=== PATIENT | male | born 1965 | race Caucasian/White ===

== ENCOUNTER 2016-06-03 19:00 | Inpatient (IN) | payer OTHER ==
[~2016-06-03] VITALS: Ht 175.3 cm; Wt 93.0 kg
[~2016-06-03 19:00] MED LIST: METF500T PO
[2016-06-03 19:23] VITALS: BP 120/73
[2016-06-03] MEDS ORDERED: SITA25TA3 PO (19:28)
[2016-06-03] MEDS ORDERED: LISI5TAB18 PO (19:28)
--- NOTE | 2016-06-03 23:10 | NUR ---
PT TAKEN TO BED 7
--- NOTE | 2016-06-03 23:11 | NUR ---
50 Y/O M W/C/O L EAR PAIN X 7 DAYS. PT STATES HE NOTED PAIN BECAME WORSE AND BLOODY DISCHRAGE PRESENT FROM AFFECETD EAR X 3 DAYS AGO. DENIES ANY N/V OR FEVER. ER AWARE.
--- NOTE | 2016-06-03 23:21 | NUR ---
Dr. Aiken evaluating patient at bedside.
[2016-06-03] MEDS ORDERED: KETOROLAC 30 MG/ML VIAL IM ONE (23:35)
[2016-06-03] MEDS ORDERED: HYDROcodone/APAP 5/325 MG 1 TAB TAB PO ONE (23:35)
--- NOTE | 2016-06-03 23:47 | NUR ---
PT MOVED TO OF
--- NOTE | 2016-06-04 00:11 | NUR ---
PT RETURN FROM CT TO OF
[2016-06-04] MEDS ORDERED: NACL 0.9% 1,000 ML IV ONE (00:38)
[2016-06-04] MEDS ORDERED: VANCOMYCIN 1,000 MG in DEXTROSE 5% 250 ML IV ONE (00:40)
--- NOTE | 2016-06-04 00:42 | NUR ---
PT MOVED TO BED 7
[2016-06-04] MEDS ORDERED: MORPHINE SULFATE 4 MG/ML SYR IVP ONE (00:50)
[2016-06-04] MEDS ORDERED: cefTRIAXone 1,000 MG VIAL ONE (01:03)
[2016-06-04] MEDS ORDERED: VANCOMYCIN 1,000 MG VIAL ONE (01:03)
[2016-06-04 01:14] LABS: BASOPHILS # (AUTO) 0.4 K/uL (0.00-0.22); BASOPHILS % (AUTO) 3.9 % (0.0-2.0); EOSINOPHILS % (AUTO) 8.9 % (0.0-4.0); HEMATOCRIT 36.2 % (36-52); LYMPHOCYTES # (AUTO) 2.6 K/uL (2.0-11.5); LYMPHOCYTES % (AUTO) 22.2 % (20.5-51.1); MEAN CORPUSCULAR HEMOGLOBIN 28 pg (27-31); MEAN CORPUSCULAR HGB CONC 33 g/dL (33-37); MEAN CORPUSCULAR VOLUME 86 fL (80-94); MONOCYTES # (AUTO) 1.1 K/uL (0.8-1.0); MONOCYTES % (AUTO) 9.3 % (1.7-9.3); NEUTROPHILS # (AUTO) 6.4 K/uL (1.8-7.7); NEUTROPHILS % (AUTO) 55.7 % (42.2-75.2); PLATELET COUNT (AUTO) 594 K/uL (140-450); RED BLOOD CELL COUNT(AUTO) 4.22 MIL/uL (4.20-6.10); RED CELL DISTRIBUTION WIDTH 12.3 % (11.6-13.7); WHITE BLOOD COUNT (AUTO) 11.5 K/uL (4.8-10.8)
[2016-06-04 01:18] LABS: INR 1.1 (0.8-1.2); PROTHROMBIN TIME 10.2 secs (10.8-13.4)
[2016-06-04 01:20] LABS: ALBUMIN 3.2 g/dL (3.4-5.0); ANION GAP 13.9 (8-16); CALCIUM 8.1 mg/dL (8.5-10.1); CARBON DIOXIDE 24.9 mmol/L (21-32); CREATININE 1.4 mg/dL (0.6-1.3); POTASSIUM 4.8 mmol/L (3.5-5.1); TOTAL BILIRUBIN 0.3 mg/dL (0.0-1.0); TOTAL PROTEIN, SERUM 7.8 g/dL (6.4-8.2)
--- NOTE | 2016-06-04 01:40 | NUR ---
Patient will be admitted to care of DR RHODES. Admited to MED SURG. Will go to [id number]. Belongings list completed. Report to RADHA WINCHESTER.
[2016-06-04 01:50] VITALS: BP 161/82
--- NOTE | 2016-06-04 01:52 | NUR ---
PT TRASFERRED TO MED SURG ROOM 107 B, BY BERT MCCARTNEY, VIA WHEEL CHAIR. NO S/S OF DISTRESS NOTED UPON D/C.
--- NOTE | 2016-06-04 02:45 | NUR ---
ADMITTED PATIENT TO UNIT FROM ED. PATIENT ARRIVED VIA WHEELCHAIR, PATIENT ABLE TO AMBULATE TO BED, STEADY GAIT NOTED. PATIENT IS ON ROOM AIR, NO SOB OR SIGN OF DISTRESS AT THIS TIME. SKIN INTACT WITH SCAB NOTED TO RIGHT ANKLE. IV TO LAC PATENT AND INTACT, PATIENT C/O PAIN TO LEFT EAR, WAS MEDICATED IN THE ED, WILL CONTINUE TO MONITOR. ORIENTED PATIENT TO ROOM AND CALL LIGHT, DISCUSSED PLAN OF CARE WITH PATIENT, PATIENT VERBALIZED UNDERSTANDING. SAFETY MEASURES CHECKED, CALL LIGHT WITHIN REACH. WILL CONTINUE TO MONITOR.
[2016-06-04] MEDS ORDERED: PNEUMOCOCCAL VACCINE 23 MCG/0.5 ML VIAL IMVAC PRN (03:05)
[2016-06-04] MEDS ORDERED: INFLUENZA VIRUS VACCINE QUAD 0.5 ML SYR IMVAC PRN (03:05)
[2016-06-04] MEDS ORDERED: HYDROmorphone 1 MG/ML AMP IVP SCH (03:05)
--- NOTE | 2016-06-04 03:05 | NUR ---
PATIENT C/O SEVERE PAIN IN THE LEFT EAR, PAGED MD RHODES. WILL FOLLOW UP WITH ORDERS.
--- NOTE | 2016-06-04 03:15 | NUR ---
ADMINISTERED DIALUDED PER MD ORDER FOR SEVERE PAIN, WILL CONTINUE TO MONITOR PATIENT. CALL LIGHT WITHIN REACH. WILL CONTINUE TO MONITOR.
[2016-06-04] MEDS ORDERED: NACL 0.9% 1,000 ML IV SCH (03:26)
[2016-06-04] MEDS ORDERED: ACETAMINOPHEN 325 MG TAB PO PRN (03:30)
[2016-06-04] MEDS ORDERED: ONDANSETRON 4 MG/2 ML VIAL IVP PRN (03:30)
[2016-06-04 04:00] VITALS: BP 150/72
[2016-06-04] MEDS ORDERED: PIPERACILLIN/TAZOBACTAM 3.375 GM VIAL IV ONE (04:26)
--- NOTE | 2016-06-04 04:30 | NUR ---
PATIENT SLEEPING, NO SOB OR SIGN OF DISTRESS AT THIS TIME, CALL LIGHT WITHIN REACH. WILL CONTINUE TO MONITOR
[2016-06-04] MEDS ORDERED: PIPERACILLIN/TAZOBACTAM 3.375 GM in DEXTROSE 5% 50 ML IV SCH (05:00)
--- NOTE | 2016-06-04 06:00 | NUR ---
BS CHECK 144, NO COVERAGE NEEDED
[2016-06-04] MEDS: BLOOD GLUCOSE MONITORING 1 DEV DEV FS SCH ×4 (06:33→20:22)
--- NOTE | 2016-06-04 07:21 | NUR ---
ENDORSED PATIENT TO DAY RN AT BEDSIDE, PATIENT IN STABLE CONDITION
--- NOTE | 2016-06-04 07:25 | NUR ---
RECEIVED REPORT FROM RADHA WINCHESTER. PT IS IN BED SLEEPING BUT EASILY AWAKEN, A/OX4, IV IS ON LEFT AC PATENT, INITIAL ASSESSMENT DONE, INTACT INFUSING WELL, SKIN IS INTACT, NO S/S OF RESPIRATORY DISTRESS OR DISCOMFORT NOTED. DISCUSSED PLAN OF CARE WITH PT, PT VERBALIZED UNDERSTANDING. ORIENTED PT TO THE ROOM. SAFETY/ FALL PRECAUTIONS IN PLACE. CALL LIGHT WITHIN REACH, WILL CONTINUE TO MONITOR.
--- NOTE | 2016-06-04 07:52 | NUR ---
PATIENT HAS BEEN SCREENED AND CATEGORIZED MODERATE NUTRITION RISK. PATIENT WILL BE SEEN WITHIN 3-5 DAYS OF ADMISSION. 06/06/16-06/08/[address]
[2016-06-04 08:00] VITALS: BP 139/89
[2016-06-04] MEDS: MORPHINE SULFATE 2 MG/ML SYR IVP PRN ×2 (08:08→18:27)
--- NOTE | 2016-06-04 08:08 | NUR ---
DUE MEDICATIONS GIVEN. PT TOLERATED WELL. PT RESTING IN BED TALKING ON HIS CELL PHONE.
[2016-06-04] MEDS ORDERED: NACL 0.9% 500 ML IV SCH (08:10)
[2016-06-04] MEDS: ENOXAPARIN 40 MG/0.4 ML SYR SUBQ SCH (08:17)
[2016-06-04] MEDS ORDERED: hydrALAZINE 20 MG/ML VIAL IVP PRN (08:30)
[2016-06-04] MEDS: NACL 0.45% 1,000 ML IV SCH (08:30)
[2016-06-04] MEDS: LEVOFLOXACIN 500 MG/D5W PREMIX 100 ML IV SCH (08:54)
[2016-06-04] MEDS ORDERED: LOPERAMIDE 2 MG CAP PO PRN (09:00)
[2016-06-04] MEDS: amLODIPine 5 MG TAB PO SCH (09:20)
[2016-06-04] MEDS: HYDROcodone/APAP 5/325 MG 1 TAB TAB PO PRN ×3 (09:20→20:21)
[2016-06-04] MEDS: CIPROFLOXACIN 0.3% OP 2.5 ML BTL OP SCH ×2 (09:24→20:21)
--- NOTE | 2016-06-04 10:30 | NUR ---
PT IS SLEEPING IN BED. NO S/S OF DISCOMFORT OR RESPIRATORY DISTRESS NOTED.
--- NOTE | 2016-06-04 12:01 | NUR ---
PT SITTING IN BED TALKING ON HIS CELL PHONE, FAMILY IS AT BEDSIDE.
[2016-06-04] MEDS: PIPER/TAZO 3.375GM/D5W PREMIX 50 ML IV SCH ×2 (13:08→20:21)
--- NOTE | 2016-06-04 14:06 | NUR ---
PT SLEEPING AT THIS TIME. NO S/S OF RESPIRATORY DISTRESS OR DISCOMFORT NOTED. WILL CONTINUE TO MONITOR.
--- NOTE | 2016-06-04 14:52 | NUR ---
CM NOTE INITIAL REVIEW SENT TO [facility] FAX# [phone] PH# AUGUST [phone]
[2016-06-04 16:00] VITALS: BP 139/67
--- NOTE | 2016-06-04 16:30 | NUR ---
PT RESTING IN BED WATCHING TV. NO S/S OF RESPIRATORY DISTRESS OR DISCOMFORT NOTED. CALL LIGHT WITHIN REACH, WILL CONTINUE TO MONITOR.
[2016-06-04] MEDS: INSULIN LISPRO SLIDING SCALE 100 UNITS/ML VIAL SUBQ PRN ×2 (18:03→20:30)
--- NOTE | 2016-06-04 19:16 | NUR ---
ENDORSED PT TO RADHA FULLER. FOR CONTINUITY OF CARE. PT STABLE AT THIS TIME. FAMILY AT BEDSIDE.
--- NOTE | 2016-06-04 19:17 | NUR ---
RECEIVED PT IN STABLE CONDITION FROM RADHA FAM. NO SOB, NO SIGNS OF DISTRESS. IV TO LT AC 22G PATENT, ASYMPTOMATIC, INTACT, IVF RUNNING. PT IS AOX4, AMBULATORY. SKIN IS INTACT. PT C/O MINIMAL BLEEDING FROM LT EAR WITH PAIN, WILL MEDICATE PER MD ORDER. FAMILY AT BEDSIDE. PLAN OF CARE DISCUSSED WITH PT. SAFETY MEASURES IN PLACE. CALL LIGHT WITHIN REACH. WILL CONTINUE TO MONITOR.
--- NOTE | 2016-06-04 20:30 | NUR ---
PT TOLERATED DUE MEDS WELL, MEDICATED PT FOR PAIN PER MD ORDER. BLOOD SUGAR 208, GAVE INSULIN PER MD ORDER. NO SOB, NO SIGNS OF DISTRESS. IV SITE ASYMPTOMATIC, INTACT, PATENT, IVF RUNNING. PLAN OF CARE DISCUSSED WITH PT. SAFETY MEASURES IN PLACE. CALL LIGHT WITHIN REACH. WILL CONTINUE TO MONITOR.
--- NOTE | 2016-06-04 22:29 | NUR ---
PT ASLEEP IN BED. NO SOB, NO SIGNS OF DISTRESS. IV SITE ASYMPTOMATIC, INTACT, PATENT, IVF RUNNING. SAFETY MEASURES IN PLACE. CALL LIGHT WITHIN REACH. WILL CONTINUE TO MONITOR.
--- NOTE | 2016-06-04 23:25 | NUR ---
PER GRADING MACHINE FEEDER ZOSYN 4.5GM IS NOT AVAILABLE IN [facility], ONLY IN PHARMACY AND CANNOT BE GIVEN UNIT PHARMACY IS OPEN IN AM. WILL PAGE TO MAKE AWARE.
--- NOTE | 2016-06-04 23:29 | NUR ---
VS STABLE ON ROOM AIR. NO SOB, NO SIGNS OF DISTRESS. IV SITE ASYMPTOMATIC, INTACT, PATENT, IVF RUNNING. PT DENIES PAIN AT THIS TIME. PLAN OF CARE DISCUSSED WITH PT. SAFETY MEASURES IN PLACE. CALL LIGHT WITHIN REACH. WILL CONTINUE TO MONITOR.
--- NOTE | 2016-06-04 23:30 | NUR ---
PAGED MD SHAH TO MAKE AWARE THAT ZOSYN 4.5GM DOSE IS NOT AVAILABLE AT THIS TIME.
--- NOTE | 2016-06-04 23:33 | NUR ---
SPOKE WITH MD ALYSSA MD MADE AWARE THAT ZOSYN 4.5 GM DOSE WILL NOT BE AVAILABLE UNTIL PHARMACY IS OPEN TOMORROW, STATED OK TO HOLD MED UNTIL IT IS AVAILABLE.
[2016-06-04] MEDS: PIPERACILLIN/TAZOBACTAM 4.5 GM in DEXTROSE 5% 100 ML IV SCH (23:47)
[2016-06-05] VITALS: BP 151/89
[2016-06-05] MEDS: HYDROcodone/APAP 5/325 MG 1 TAB TAB PO PRN ×4 (00:49→23:05)
--- NOTE | 2016-06-05 00:49 | NUR ---
PT C/O PAIN IN LT EAR WITH MINIMAL BLEEDING NOTED, MEDICATED PT PER MD ORDER. TOLD PT TO SLEEP ON HIS RIGHT SIDE RATHER THAN PUTTING PRESSURE ON HIS LT EAR, PT VERBALIZED UNDERSTANDING. NO SOB, NO SIGNS OF DISTRESS. IV SITE ASYMPTOMATIC, INTACT, PATENT, IVF RUNNING. PLAN OF CARE DISCUSSED WITH PT. SAFETY MEASURES IN PLACE. CALL LIGHT WITHIN REACH. WILL CONTINUE TO MONITOR.
--- NOTE | 2016-06-05 04:15 | NUR ---
PT C/O IV SITE PAINFUL, IV ALARMING WITH HIGH PRESSURE, UNABLE TO FLUSH LINE. DC IV TO LT AC AND STARTED NEW IV TO LT FA 22G PATENT, ASYMPTOMATIC, INTACT, IVF RUNNING. PT C/O PAIN AND REQUESTED NORCO, WILL MEDICATE PER MD ORDER. PLAN OF CARE DISCUSSED WITH PT. SAFETY MEASURES IN PLACE. CALL LIGHT WITHIN REACH. WILL CONTINUE TO MONITOR.
[2016-06-05] MEDS: PIPERACILLIN/TAZOBACTAM 4.5 GM in DEXTROSE 5% 100 ML IV SCH ×3 (05:34→18:10)
[2016-06-05] MEDS ORDERED: HYDROcodone/APAP 5/325 MG 1 TAB TAB ONE (05:38)
[2016-06-05 06:07] LABS: BASOPHILS # (AUTO) 0.4 K/uL (0.00-0.22); BASOPHILS % (AUTO) 4.1 % (0.0-2.0); EOSINOPHILS # (AUTO) 1.3 K/uL (0-0.4); HEMATOCRIT 36.4 % (36-52); HEMOGLOBIN 12.3 g/dL (12.0-18.0); LYMPHOCYTES # (AUTO) 3.3 K/uL (2.0-11.5); LYMPHOCYTES % (AUTO) 31.9 % (20.5-51.1); MEAN CORPUSCULAR HEMOGLOBIN 29 pg (27-31); MEAN CORPUSCULAR HGB CONC 34 g/dL (33-37); MEAN CORPUSCULAR VOLUME 85 fL (80-94); MONOCYTES % (AUTO) 9.4 % (1.7-9.3); NEUTROPHILS # (AUTO) 4.2 K/uL (1.8-7.7); NEUTROPHILS % (AUTO) 41.6 % (42.2-75.2); PLATELET COUNT (AUTO) 509 K/uL (140-450); RED BLOOD CELL COUNT(AUTO) 4.28 MIL/uL (4.20-6.10); RED CELL DISTRIBUTION WIDTH 11.9 % (11.6-13.7); WHITE BLOOD COUNT (AUTO) 10.2 K/uL (4.8-10.8)
[2016-06-05] MEDS: BLOOD GLUCOSE MONITORING 1 DEV DEV FS SCH ×4 (06:11→20:36)
[2016-06-05 06:21] LABS: ANION GAP 12.6 (8-16); CALCIUM 7.9 mg/dL (8.5-10.1); CARBON DIOXIDE 24.5 mmol/L (21-32); POTASSIUM 5.1 mmol/L (3.5-5.1)
--- NOTE | 2016-06-05 07:26 | NUR ---
ENDORSED PT IN STABLE CONDITION TO RADHA WILKERSON. ALL NEEDS HAVE BEEN MET AT THIS TIME.
--- NOTE | 2016-06-05 07:27 | NUR ---
RECEIVED SBAR REPORT AT PT BEDSIDE. PT RESTING IN BED. NO S/S OF ACUTE DISTRESS. AAOX4. IV SITE PATENT AND INTACT. CALL LIGHT WITHIN REACH.
[2016-06-05 08:00] VITALS: BP 108/70
[2016-06-05] MEDS: NACL 0.45% 1,000 ML IV SCH (08:30)
[2016-06-05] MEDS: LEVOFLOXACIN 500 MG/D5W PREMIX 100 ML IV SCH (09:01)
[2016-06-05] MEDS: CIPROFLOXACIN 0.3% OP 2.5 ML BTL OP SCH ×2 (09:01→20:45)
[2016-06-05] MEDS: ENOXAPARIN 40 MG/0.4 ML SYR SUBQ SCH (09:07)
[2016-06-05] MEDS: amLODIPine 5 MG TAB PO SCH (10:15)
--- NOTE | 2016-06-05 10:53 | NUR ---
CM NOTE CONCURRENT REVIEW SENT TO [facility] FAX# [phone] PH# AUGUST [phone]
--- NOTE | 2016-06-05 11:14 | NUR ---
ASSISTED PT TO SHOWER. NO S/S OF ACUTE DISTRESS.
--- NOTE | 2016-06-05 11:51 | NUR ---
PT RETURNED TO BED, NO S/S OF ACUTE DISTRESS. DENIES DISCOMFORT.
[2016-06-05] MEDS: INSULIN LISPRO SLIDING SCALE 100 UNITS/ML VIAL SUBQ PRN ×2 (12:03→21:37)
--- NOTE | 2016-06-05 14:00 | NUR ---
PT RESTING IN BED. DENIES DISCOMFORT. IV SITE PATENT AND INTACT. CALL LIGHT WITHIN REACH.
[2016-06-05 16:00] VITALS: BP 146/84
--- NOTE | 2016-06-05 17:20 | NUR ---
PT RESTING IN BED. DENIES DISCOMFORT. WILL CONTINUE TO MONITOR.
--- NOTE | 2016-06-05 19:15 | NUR ---
ENDORSED PLAN OF CARE TO RN JEROD. PT RESTING IN BED. FAMILY AT BEDSIDE. NO S/S OF ACUTE DISTRESS.
--- NOTE | 2016-06-05 19:20 | NUR ---
RECEIVED PT IN STABLE CONDITION FROM AM NURSE. AWAKE,ALERT AND ORIENTED X4. MED SURG PT. NO C/O ANY DISCOMFORT NOR PAIN AT THIS TIME. AMBULATORY. WITH IVF INFUSING WELL ON THE LT FA#22 ,CLEAR AND PATENT. PLAN OF CARE DISCUSSED AND VERBALIZED UNDERSTANDING. CALL LIGHT AND URINAL PLACED WITHIN EASY REACH. INSTRUCTED TO CALL FOR ANY ASSISTANCE. WILL CONTINUE TO MONITOR.
[2016-06-05 20:00] VITALS: BP 146/81
--- NOTE | 2016-06-05 21:37 | NUR ---
BLOOD SUGAR WAS CHECKED RESULT 281. INSULIN COVERAGE GIVEN. PROVIDED SOME SNACK. WILL CONTINUE TO MONITOR.
--- NOTE | 2016-06-05 23:05 | NUR ---
C/O PAIN ON THE LT EAR. MEDICATED ORDERED FOR PAIN. WILL CONTINUE TO MONITOR.
[2016-06-06 00:10] VITALS: BP 144/79
[2016-06-06] MEDS: PIPERACILLIN/TAZOBACTAM 4.5 GM in DEXTROSE 5% 100 ML IV SCH ×2 (00:14→05:35)
--- NOTE | 2016-06-06 01:30 | NUR ---
STILL AWAKE. BUT NO C/O ANY PAIN NOTED.
--- NOTE | 2016-06-06 03:30 | NUR ---
SLEEPING WELL AT THIS TIME. NO S/S OF ANY DISCOMFORT NOTED.
[2016-06-06 04:32] VITALS: BP 146/90
[2016-06-06] MEDS: HYDROcodone/APAP 5/325 MG 1 TAB TAB PO PRN (04:34)
[2016-06-06] MEDS: BLOOD GLUCOSE MONITORING 1 DEV DEV FS SCH (06:18)
[2016-06-06] MEDS: INSULIN LISPRO SLIDING SCALE 100 UNITS/ML VIAL SUBQ PRN (06:20)
--- NOTE | 2016-06-06 06:20 | NUR ---
BLOOD SUGAR THIS AM 162. INSULIN COVERAGE GIVEN.
[2016-06-06 06:47] LABS: BASOPHILS # (AUTO) 0.1 K/uL (0.00-0.22); BASOPHILS % (AUTO) 1.2 % (0.0-2.0); EOSINOPHILS # (AUTO) 1.3 K/uL (0-0.4); EOSINOPHILS % (AUTO) 13.1 % (0.0-4.0); HEMATOCRIT 36.1 % (36-52); LYMPHOCYTES # (AUTO) 3.7 K/uL (2.0-11.5); LYMPHOCYTES % (AUTO) 37.3 % (20.5-51.1); MEAN CORPUSCULAR HEMOGLOBIN 28 pg (27-31); MEAN CORPUSCULAR HGB CONC 33 g/dL (33-37); MEAN CORPUSCULAR VOLUME 85 fL (80-94); MONOCYTES % (AUTO) 9.6 % (1.7-9.3); NEUTROPHILS # (AUTO) 3.9 K/uL (1.8-7.7); NEUTROPHILS % (AUTO) 38.8 % (42.2-75.2); PLATELET COUNT (AUTO) 505 K/uL (140-450); RED BLOOD CELL COUNT(AUTO) 4.22 MIL/uL (4.20-6.10); RED CELL DISTRIBUTION WIDTH 11.9 % (11.6-13.7)
--- NOTE | 2016-06-06 07:13 | NUR ---
ENDORSED PT IN STABLE CONDITION TO AM NURSE.
--- NOTE | 2016-06-06 07:14 | NUR ---
RECEIVED PT IN BED, AWAKE, AOX4. BREATHING EVEN, UNLABORED, CLEAR BREATH SOUNDS ON AUSCULTATION. ON ROOM AIR. DENIES ANY PAIN OR DISCOMFORT AT THIS TIME. INITIAL VITAL SIGNS TAKEN AND RECORDED. WITH ON GOING IVF OF 0.45 NACL AT 30 ML/HR ON LEFT FA G22,INFUSING WELL. NO INFILTRATION OR REDNESS NOTED. DENIES ANY ABDOMINAL DISCOMFORT. SKIN INTACT. AMBULATORY. KEPT COMFORTABLE, CALL LIGHT WITHIN REACH, LOW BED MAINTAINED. SAFETY PRECAUTION IN PLACE
[2016-06-06 07:44] LABS: ANION GAP 11.8 (8-16); CALCIUM 8.1 mg/dL (8.5-10.1); CREATININE 1.2 mg/dL (0.6-1.3); POTASSIUM 4.8 mmol/L (3.5-5.1)
[2016-06-06 08:00] VITALS: BP 114/69
[2016-06-06] MEDS ORDERED: CIPR10SU LEFT EAR (08:03)
[2016-06-06] MEDS ORDERED: LEVO750T2 PO (08:03)
[2016-06-06] MEDS: LEVOFLOXACIN 500 MG/D5W PREMIX 100 ML IV SCH (09:00)
--- NOTE | 2016-06-06 09:00 | NUR ---
PT ATE BREAKFAST 100% FOOD TOLERATED WELL. PT AMBULATED TO THE BATHROOM INDEPENDENTLY.
[2016-06-06] MEDS: ENOXAPARIN 40 MG/0.4 ML SYR SUBQ SCH (09:03)
[2016-06-06] MEDS: amLODIPine 5 MG TAB PO SCH (09:09)
[2016-06-06] MEDS: CIPROFLOXACIN 0.3% OP 2.5 ML BTL OP SCH (09:13)
--- NOTE | 2016-06-06 10:35 | NUR ---
DISCHARGE INSTRUCTION AND PRESCRIPTION GIVEN TO PT. PT VERBALIZED UNDERSTANDING ON THE TEACHINGS. PT DENIES ANY PAIN OR DISCOMFORT. PT SIGNED DISCHARGE PAPERS. IV REMOVED, TIP OF CANNULA INTACT, ARM BANDS REMOVED.
--- NOTE | 2016-06-06 10:55 | NUR ---
PT WHEELED SAFELY TO THE PARKING LOT, TO HIS PRIVATELY OWN VEHICLE. DISCHARGED HOME IN STABLE CONDITION, AMBULATORY.
--- NOTE | 2016-06-06 12:13 | NUR ---
CM NOTE CONCURRENT REVIEW SENT TO [facility] FAX# [phone] PH# AUGUST [phone]
== END 2016-06-06 10:55 | disposition home or self-care (01) | DRG 113 ==
LOC: MED 19:00 → MTU 06-04 01:33
PROVIDERS: ADMIT Hospitalist; ATTEND Hospitalist
DX: H70.002 Acute mastoiditis without complications, left ear (principal); N17.9 Acute kidney failure, unspecified; H60.22 Malignant otitis externa, left ear; I10 Essential (primary) hypertension; E11.9 Type 2 diabetes mellitus without complications; B96.5 Pseudomonas (aeruginosa) (mallei) (pseudomallei) as the cause of diseases classified elsewhere; Z68.30 Body mass index [BMI] 30.0-30.9, adult; Z89.012 Acquired absence of left thumb
CPT/HCPCS: 36415; 70450; 80048; 80053; 82948; 83735; 85025; 85610; 87081; 90658; 90732; 96365; 96367; 96372; 96375; 99285; J0696; J1170; J1650; J1815; J1885; J1956; J2270; J2543; J3370; J7030; J7060

== ENCOUNTER 2017-06-03 08:48 | Inpatient (IN) | payer SELFPAY ==
[~2017-06-03] VITALS: Ht 175.3 cm; Wt 88.0 kg
[~2017-06-03 08:48] MED LIST changes: +CIPR10SU LEFT EAR; +LEVO750T2 PO; +LISI5TAB18 PO; +SITA25TA3 PO
[2017-06-03 08:55] VITALS: BP 122/52
--- NOTE | 2017-06-03 09:10 | NUR ---
PATIENT PRESENTS TO ED WITH Rt plantar pain x 4days, pt denies injury. Upon removing sock, noted rt pinky toe covered with serosangineous drainage gauze, eschar tissue, redness, swelling and painful to touch. med hx: DM, HTN, Rx: metformin, imvokana, januvia, lisinopril; DENIES N/V/D; SKIN IS PINK/WARM/DRY; AAOX4 WITH EVEN AND STEADY GAIT; LUNGS CLEAR BL; HR EVEN AND REGULAR; PT DENIES ANY FEVER, CP, SOB, OR COUGH AT THIS TIME; PATIENT STATES PAIN OF 5/10 AT THIS TIME; VSS; PATIENT POSITIONED FOR COMFORT; HOB ELEVATED; BEDRAILS UP X2; BED DOWN. ER MD MADE AWARE OF PT STATUS.
[2017-06-03] MEDS ORDERED: LEVOFLOXACIN 750 MG/D5W PREMIX 150 ML IV ONE (09:50)
[2017-06-03 10:01] LABS: BASOPHILS # (AUTO) 0.2 K/uL (0.00-0.22); BASOPHILS % (AUTO) 0.8 % (0.0-2.0); EOSINOPHILS # (AUTO) 0.2 K/uL (0-0.4); EOSINOPHILS % (AUTO) 0.9 % (0.0-4.0); HEMATOCRIT 27.2 % (36-52); HEMOGLOBIN 8.9 g/dL (12.0-18.0); LYMPHOCYTES # (AUTO) 1.2 K/uL (2.0-11.5); LYMPHOCYTES % (AUTO) 4.3 % (20.5-51.1); MEAN CORPUSCULAR HEMOGLOBIN 28 pg (27-31); MEAN CORPUSCULAR HGB CONC 33 g/dL (33-37); MEAN CORPUSCULAR VOLUME 84 fL (80-94); MONOCYTES # (AUTO) 2.4 K/uL (0.8-1.0); MONOCYTES % (AUTO) 8.9 % (1.7-9.3); NEUTROPHILS % (AUTO) 85.1 % (42.2-75.2); PLATELET COUNT (AUTO) 581 K/uL (140-450); RED BLOOD CELL COUNT(AUTO) 3.23 MIL/uL (4.20-6.10); RED CELL DISTRIBUTION WIDTH 12.7 % (11.6-13.7)
[2017-06-03 10:07] LABS: ANION GAP 13.6 (8-16); CARBON DIOXIDE 25.1 mmol/L (21-32); CREATININE 1.9 mg/dL (0.7-1.3); POTASSIUM 4.7 mmol/L (3.5-5.1)
[2017-06-03] MEDS ORDERED: NACL 0.9% 1,000 ML IV SCH (10:19)
[2017-06-03 10:20] LABS: TOTAL BILIRUBIN 0.4 mg/dL (0.0-1.0)
[2017-06-03] MEDS ORDERED: ONDANSETRON 4 MG/2 ML VIAL IM/IVP PRN (10:20)
[2017-06-03] MEDS ORDERED: DOCUSATE SODIUM 100 MG GELCAP PO PRN (10:20)
[2017-06-03] MEDS ORDERED: NACL 0.9% 1,000 ML IV ONE (10:30)
[2017-06-03] MEDS ORDERED: CLINICAL MONITORING MC PRN (10:55)
[2017-06-03 10:57] LABS: PROTHROMBIN TIME 11.6 secs (10.8-13.4)
[2017-06-03 11:05] LABS: CHOL/HDL RATIO 5.2 (1-4.5); FREE T4 (FREE THYROXINE) 1.19 ng/dL (0.76-1.46); MAGNESIUM 2.1 mg/dL (1.8-2.4); PHOSPHORUS 4.2 mg/dL (2.5-4.9); THYROID STIMULATING HORMONE 1.15 uIU/mL (0.34-3.74)
--- NOTE | 2017-06-03 11:30 | NUR ---
PT ARRIVED ON THE UNIT WITH ER NURSE. PT IS AWAKE, ALERT AND ORIENTED. PT AMBULATED FROM GURNEY TO BED. INTRODUCED OURSELVES AND UPDATED THE BOARD. PT HAS AN IV L FA 22G SL. PT C/O PAIN IN HIS R FOOT. PER DX: OSTEOMYELITIS. PER MD, PT IS TO BE NPO D/T POSSIBLE PROCEDURE W/ PODIATRY/ORTHO. NOTIFIED PT. ADMINISTERED TELE MONITOR. MRSA SCREENING DONE. WILL START ADMISSION PROCESS.
[2017-06-03] MEDS ORDERED: DEXT 5% / NACL 0.45% 1,000 ML IV ONE (11:40)
[2017-06-03] MEDS ORDERED: DEXTROSE 50% 50 ML SYR IVP PRN (11:40)
--- NOTE | 2017-06-03 11:40 | NUR ---
Patient will be admitted to care of DR ASTUDILLO. Admited to TELE. Will go to room 123A. Belongings list completed. Report to RADHA MARES.
[2017-06-03 12:00] VITALS: BP 114/59
[2017-06-03] MEDS: MORPHINE SULFATE 2 MG/ML SYR IVP PRN ×2 (12:40→15:45)
--- NOTE | 2017-06-03 12:50 | NUR ---
ADMINISTERED PAIN MED, JANUVIA, AND HUNG D5 1/2NS IVF. PT TOLERATED WELL. DAUGHTER AT BEDSIDE. WILL CONTINUE TO MONITOR PT.
[2017-06-03] MEDS: ACETAMINOPHEN 325 MG TAB PO PRN (14:58)
--- NOTE | 2017-06-03 15:00 | NUR ---
PT HAD A FEVER. 102.8F. ADMINISTERED TYLENOL. PT TOLERATED WELL. WILL CONTINUE TO MONITOR PT.
[2017-06-03 16:00] VITALS: BP 102/55
[2017-06-03 16:24] VITALS: BP 114/59
[2017-06-03] MEDS: BLOOD GLUCOSE MONITORING 1 DEV DEV FS SCH ×2 (16:30→21:00)
[2017-06-03] MEDS: INSULIN LISPRO SLIDING SCALE 100 UNITS/ML VIAL SUBQ PRN (18:09)
--- NOTE | 2017-06-03 18:17 | NUR ---
PATIENT CURRENTLY [facility]. PATIENT SHOWS NO SIGNS AND SYMPTOMS OF DISTRESS. BED IN LOW POSITION, CALL LIGHT WITHIN REACH. WILL CONTINUE TO MONITOR. PATIENT WILL BE NPO AFTER MIDNIGHT.
--- NOTE | 2017-06-03 18:20 | NUR ---
URINE COLLECTED AND SENT TO LAB.
--- NOTE | 2017-06-03 19:10 | NUR ---
ENDORSED PT TO THE COLLEGE OF EDUCATION DEAN NURSE AT BEDSIDE FOR CONTINUITY OF CARE. PT IN STABLE CONDITION. FAMILY AT BEDSIDE.
--- NOTE | 2017-06-03 19:21 | NUR ---
RESTARTED AN IV ON THE L HAND 22G. D5 1/2 NS INFUSING AT 125ML/HR. 1 ATTEMPT. PT TOLERATED WELL.
--- NOTE | 2017-06-03 19:25 | NUR ---
RECEIVED PATIENT LYING ON BED. BED IN LOW POSITION, CALL LIGHTS WITHIN REACH. EXPLAINED TO PATIENT PLAN OF CARE. PATIENT VERBALIZED UNDERSTANDING. WILL CONTINUE TO MONITOR.
[2017-06-03 20:00] VITALS: BP 156/69
[2017-06-03] MEDS: CLINDAMYCIN 600 MG in DEXTROSE 5% 50 ML IV SCH (20:41)
[2017-06-03 20:53] LABS: BARBITURATE, URINE NEG. ng/ml (NEG <=200); BENZODIAZEPINE, URINE NEG. ng/mL (NEG <=200); CANNABINOID, URINE NEG. ng/mL (NEG <=50); COCAINE, URINE NEG. ng/mL (NEG <=300); OPIATE, URINE NEG. ng/mL (NEG <=2000); PHENCYCLIDINE SCREEN,URINE NEG. ng/mL (NEG <=25)
--- NOTE | 2017-06-03 21:05 | NUR ---
SEEN PATIENT LYING COMFORTABLE IN BED. CALL LIGHT WITHIN REACH, BED IN LOW POSITION, ALL NEEDS ATTENDED. NO S/S DISTRESS AT THIS TIME.
[2017-06-03] MEDS: NACL 0.9% 1,000 ML IV SCH (21:15)
[2017-06-04] VITALS: BP 152/72
--- NOTE | 2017-06-04 | NUR ---
ASSIST PATIENT TO THE BATHROOM TO HAVE BM. PATIENT ABLE TO AMBULATE WITH ASSISTANCE. V/S TAKEN AND RECORDED. BED IN LOW POSITION. CALL LIGHT WITHIN REACH. WILL CONTINUE TO MONITOR.
--- NOTE | 2017-06-04 01:50 | NUR ---
DR. BUTLER NOTIFIED ABOUT ELEVATED BP. NO CHANGES MADE.
--- NOTE | 2017-06-04 02:01 | NUR ---
PATIENT LYING IN BED ASLEEP, EASILY AROUSABLE. CALL LIGHT WITHIN REACH, BED IN LOW POSITION.
[2017-06-04 04:00] VITALS: BP 149/77
--- NOTE | 2017-06-04 04:00 | NUR ---
SEEN PATIENT LYING IN BED COMFORTABLE AND EASILY AROUSABLE. CALL LIGHT WITHIN REACH. NO S/S OF DISTRESS NOTED.
[2017-06-04] MEDS: CLINDAMYCIN 600 MG in DEXTROSE 5% 50 ML IV SCH ×3 (04:40→21:05)
[2017-06-04] MEDS: ACETAMINOPHEN 325 MG TAB PO PRN ×2 (04:40→16:45)
--- NOTE | 2017-06-04 04:40 | NUR ---
PATIENT HAD FEVER 102.2. ADMINISTERED TYLENOL. PATIENT TOLERATED WELL. WILL CONTINUE TO MONITOR.
--- NOTE | 2017-06-04 05:30 | NUR ---
AM CARE DONE. CHANGED LINEN AND BLANKET. WILL CONTINUE TO MONITOR.
[2017-06-04] MEDS: INSULIN LISPRO SLIDING SCALE 100 UNITS/ML VIAL SUBQ PRN ×3 (05:47→21:11)
[2017-06-04 06:21] LABS: T4 (THYROXINE) 6.9 ug/dL (4.5-12.0)
--- NOTE | 2017-06-04 07:10 | NUR ---
ENDORSED PATIENT TO AM SHIFT NURSE FOR CONTINUITY OF CARE. PATIENT IN STABLE CONDITION.
--- NOTE | 2017-06-04 07:12 | NUR ---
RECEIVED REPORT FROM RETAIL PARTS PROFESSIONAL NURSE. PT IS SLEEPING IN BED BUT EASILY AWAKEN, PT IS AAOX4, BEDREST, PT HAS RIGHT FOOT PINKY NECROSIS, NO S/S OF RESPIRATORY DISTRESS OR DISCOMFORT NOTED, IV IS ON THE LEFT HAND, PATENT, INTACT, FLUSHING WELL, DISCUSSED PLAN OF CARE WITH PT, PT VERBALIZED UNDERSTANDING, CALL LIGHT IS WITHIN REACH, WILL CONTINUE TO MONITOR.
[2017-06-04 07:33] LABS: ANION GAP 17.5 (8-16); CARBON DIOXIDE 19.7 mmol/L (21-32); CREATININE 1.5 mg/dL (0.7-1.3); POTASSIUM 4.2 mmol/L (3.5-5.1)
[2017-06-04 07:39] LABS: MAGNESIUM 2.3 mg/dL (1.8-2.4); PHOSPHORUS 3.6 mg/dL (2.5-4.9)
[2017-06-04 08:00] VITALS: BP 127/67
[2017-06-04] MEDS: BLOOD GLUCOSE MONITORING 1 DEV DEV FS SCH ×4 (08:00→21:07)
[2017-06-04] MEDS: NACL 0.9% 1,000 ML IV SCH ×3 (08:00→20:21)
[2017-06-04 08:02] LABS: HEMATOCRIT 27.6 % (36-52); MEAN CORPUSCULAR HEMOGLOBIN 28 pg (27-31); MEAN CORPUSCULAR HGB CONC 33 g/dL (33-37); MEAN CORPUSCULAR VOLUME 84 fL (80-94); PLATELET COUNT (AUTO) 578 K/uL (140-450); RED BLOOD CELL COUNT(AUTO) 3.27 MIL/uL (4.20-6.10); RED CELL DISTRIBUTION WIDTH 13.2 % (11.6-13.7); WHITE BLOOD COUNT (AUTO) 25.3 K/uL (4.8-10.8)
[2017-06-04] MEDS ORDERED: ECOTRIN 81 MG TABEC PO SCH (09:00)
[2017-06-04] MEDS ORDERED: LISINOPRIL 5 MG TAB PO SCH (09:00)
--- NOTE | 2017-06-04 09:00 | NUR ---
WOUND CARE EVALUATION NOTE REASON FOR EVALUATION: RIGHT FIFTH TOE WOUND COMPLETE ASSESSMENT DONE ON THIS 51 Y/O MALE ADMITTED TO [facility] WITH CHIEF COMPLAINT OF RIGHT FIFTH TOE SWELLING AND REDNESS X 4 DAYS. PAST MEDICAL HX INCLUDE DM AND HTN. ALL ABOVE INFORMATION WAS OBTAINED FROM THE ADMISSION H&P. LABS ARE WBC 25.3 H/H 9.0/27.6 ALBUMIN 2.0 PT 11.6 INR 1.1, GLUCOSE 229. CURRENT MEDS INCLUDE LEVAQUIN AND CLEOCIN. TOE XRAY REVEAL OSTEOMYELITIS OF THE DISTAL PHALANX OF THE RIGHT FIFTH DIGIT. PATIENT IS AWAKE, ALERT AND ORIENTED. SKIN WARM TO TOUCH WNL. NO HAIR GROWTH BLE WITH BILATERAL PEDAL PULSES PRESENT. SWELLING NOTED TO THE RIGHT FOOT. INTEGUMENTARY: RIGHT FIFTH TOE WOUND WITH MEASUREMENTS 1.5CM X 1.0CM WOUND BED BLACK RECOMMENDATIONS - CLEANSE WOUND WITH NS THEN PAT DRY. APPLY BETADINE, ADAPTIC DRESSING THEN COVER WITH GAUZE AND KERLIX - PODIATRY CONSULT - PATIENT SCHEDULED TO HAVE INCISION AND DRAINAGE TODAY - WOUND CARE PER PODIATRY
[2017-06-04 09:32] LABS: EOSINOPHILS % (MANUAL) 1 % (0-4); LYMPHOCYTES % (MANUAL) 10 % (20-46); MONOCYTES % (MANUAL) 8 % (5-12)
[2017-06-04] MEDS: LACTOBACILLUS RHAMNOSUS GG 1 EACH CAP PO SCH (09:50)
[2017-06-04] MEDS: LISINOPRIL 5 MG TAB PO SCH (09:51)
--- NOTE | 2017-06-04 09:52 | NUR ---
DUE MEDICATIONS GIVEN, PT TOLERATED WELL, CALL LIGHT IS WITHIN REACH, WILL CONTINUE TO MONITOR.
--- NOTE | 2017-06-04 10:36 | NUR ---
PATIENT HAS BEEN SCREENED AND CATEGORIZED HIGH NUTRITION RISK. PATIENT WILL BE SEEN WITHIN 1-2 DAYS OF ADMISSION. 06/04/17 - 06/05/[address]
[2017-06-04] MEDS: LEVOFLOXACIN 750 MG/D5W PREMIX 150 ML IV SCH (11:22)
[2017-06-04] MEDS: MORPHINE SULFATE 2 MG/ML SYR IVP PRN ×2 (11:26→21:03)
[2017-06-04 12:00] VITALS: BP 153/66
[2017-06-04] MEDS ORDERED: fentaNYL 0.05 MG/ML VIAL ONE ×2 (12:07)
[2017-06-04] MEDS ORDERED: diphenhydrAMINE 50 MG/ML VIAL ONE (12:07)
[2017-06-04] MEDS ORDERED: MIDAZOLAM 2 MG/2 ML VIAL ONE (12:07)
--- NOTE | 2017-06-04 12:10 | NUR ---
PATIENT TAKEN TO OR TO HAVE PROCEDURE DONE ON HIS RIGHT FOOT. PT LEFT IN STABLE CONDITION.
[2017-06-04] MEDS ORDERED: BUPIVACAINE-MPF 0.5% 30 ML VIAL INJ ONE ×2 (12:21→12:53)
[2017-06-04] MEDS ORDERED: MIDAZOLAM 2 MG/2 ML VIAL IVP ONE ×2 (13:10→14:30)
[2017-06-04] MEDS ORDERED: fentaNYL 0.05 MG/ML VIAL IVP ONE ×2 (13:10→13:15)
--- NOTE | 2017-06-04 13:30 | NUR ---
PATIENT RETURNED FROM OR, PT IS DROWSY AT THIS TIME, BP 140/75, HR:85, O2 SAT 94%. PATIENT'S DAUGHTER DOMINGA WAS NOTIFIED THAT THE PATIENT WAS BACK IN HIS ROOM.
[2017-06-04] MEDS ORDERED: MIDAZOLAM 2 MG/2 ML VIAL IVP SCH (14:30)
--- NOTE | 2017-06-04 15:00 | NUR ---
PATIENT RESTING IN BED, PT SHIVERING STATING HE IS COLD. PATIENT ACCIDENTLY PULLED OUT HIS IV, CATHETER TIP INTACT. BLOOD SUGAR IS AT 103 AT THIS TIME, PT WAS GIVEN AN ORANGE JUICE, GOWN AND LINENS WERE CHANGED, PATIENT'S DAUGHTER IS AT BEDSIDE, WILL ATTEMPT TO START A NEW IV.
--- NOTE | 2017-06-04 16:45 | NUR ---
PT RESTING ON THE BED, SHIVERING, V/S TAKEN, TEMPERATURE IS 103 AND GAVE TYLENOL 650 MG AT 1645, NO OTHER ABNORMALITIES NOTED AT THIS TIME. WILL CONTINUE TO MONITOR.
--- NOTE | 2017-06-04 17:56 | NUR ---
PT IS ON THE BED, AWAKE, DAUGHTER ON THE BEDSIDE, CHECKED THE TEMPERATURE AGAIN AT 1545, IS 102.3, NO MORE CHILLS NOTED ON THE PT. WILL CONTINUE TO MONITOR.
--- NOTE | 2017-06-04 19:49 | NUR ---
ENDORSED PT TO PATIENT RELATIONS COORDINATOR NURSE FOR CONTINUITY OF CARE. PT STABLE AT THIS TIME.
--- NOTE | 2017-06-04 19:50 | NUR ---
RECEIVED REPORT FROM DAY NURSE VICENTA GARCIA. PT IN STABLE CONDITION. NO S/S OF DISTRESS NOTED. PT AAOX4, ON ROOM AIR. IV TO L FA 22G, PATENT AND INTACT, INFUSING WELL. SKIN WARM AND DRY TO TOUCH. PT S/P R PINKY TOE AMPUTATION. DRESSING DRY AND INTACT. RR EVEN/UNLABORED. INITIAL ASSESSMENT COMPLETED. PLAN OF CARE DISCUSSED WITH PT, VERBALIZED UNDERSTANDING. ALL SAFETY PRECAUTIONS MET, CALL LIGHT WITHIN REACH, BOARD UPDATED WILL CONTINUE TO MONITOR.
[2017-06-04] MEDS: ATORVASTATIN 20 MG TAB PO SCH (21:05)
[2017-06-05] VITALS: BP 136/68
--- NOTE | 2017-06-05 00:10 | NUR ---
IV INFILTRATED. D/C IV TIP INTACT. NO S/S OF DISTRESS NOTED
--- NOTE | 2017-06-05 00:15 | NUR ---
NEW IV STARTED IN L FA 22G BY WILBER GARCIA. ONE ATTEMPT MADE, PT TOLERATED WELL
[2017-06-05] MEDS: NACL 0.9% 1,000 ML IV SCH ×3 (04:03→19:27)
[2017-06-05] MEDS: CLINDAMYCIN 600 MG in DEXTROSE 5% 50 ML IV SCH (04:58)
[2017-06-05] MEDS: MORPHINE SULFATE 2 MG/ML SYR IVP PRN ×2 (04:58→19:30)
[2017-06-05] MEDS: INSULIN LISPRO SLIDING SCALE 100 UNITS/ML VIAL SUBQ PRN ×3 (06:35→21:00)
[2017-06-05] MEDS: BLOOD GLUCOSE MONITORING 1 DEV DEV FS SCH ×4 (06:35→20:56)
--- NOTE | 2017-06-05 07:30 | NUR ---
REPORT GIVEN TO MOLDER FITTING NURSE, PT IN STABLE CONDITION. Addendum: 06/05/17 at 1941 by Jeffrey Chahal RN WRONG TIME, PLEASE DISCARD.
--- NOTE | 2017-06-05 07:30 | NUR ---
RECEIVED REPORT FROM ENGINEERING PROJECT DESIGNER NURSE. PT IS AAOX4. NO S/S OF DISTRESS NOTED ON ROOM AIR. IV NOTED TO L FA 22G, PATENT AND INTACT, INFUSING WELL. SKIN WARM AND DRY TO TOUCH. PT S/P DAY 2 OF R PINKY TOE AMPUTATION. DRESSING DRY AND INTACT. INITIAL ASSESSMENT COMPLETED. PLAN OF CARE DISCUSSED WITH PT, VERBALIZED UNDERSTANDING. ALL SAFETY PRECAUTIONS MET, CALL LIGHT WITHIN REACH, BOARD UPDATED WILL CONTINUE TO MONITOR.
--- NOTE | 2017-06-05 07:33 | NUR ---
REPORT GIVEN TO DAY SHIFT NURSE FOR CONTINUITY OF CARE, PT IN STABLE CONDITION. NO S/S OF DISTRESS NOTED.
[2017-06-05 08:00] VITALS: BP 152/73
[2017-06-05] MEDS: LACTOBACILLUS RHAMNOSUS GG 1 EACH CAP PO SCH (10:03)
[2017-06-05] MEDS: LISINOPRIL 5 MG TAB PO SCH (10:04)
[2017-06-05 10:33] LABS: HEMATOCRIT 24.4 % (36-52); HEMOGLOBIN 8.2 g/dL (12.0-18.0); MEAN CORPUSCULAR HEMOGLOBIN 28 pg (27-31); MEAN CORPUSCULAR HGB CONC 34 g/dL (33-37); MEAN CORPUSCULAR VOLUME 82.9 fL (80-94); PLATELET COUNT (AUTO) 543 K/uL (140-450); RED BLOOD CELL COUNT(AUTO) 2.95 MIL/uL (4.20-6.10); RED CELL DISTRIBUTION WIDTH 12.8 % (11.6-13.7); WHITE BLOOD COUNT (AUTO) 25.6 K/uL (4.8-10.8)
[2017-06-05] MEDS: LEVOFLOXACIN 750 MG/D5W PREMIX 150 ML IV SCH (10:39)
--- NOTE | 2017-06-05 10:45 | NUR ---
HELPED PT TO BATHROOM WITH WALKER, PT HAD ONE BM.
[2017-06-05 10:46] LABS: ANION GAP 14.5 (8-16); CARBON DIOXIDE 20.7 mmol/L (21-32); CREATININE 1.3 mg/dL (0.7-1.3); POTASSIUM 4.2 mmol/L (3.5-5.1)
--- NOTE | 2017-06-05 11:05 | NUR ---
LEVAQUIN WAS STOPPED INFUSING BECAUSE DR GONZALEZ'D THE MED. MADE DR GRIFFIN AWARE. DR GRIFFIN WILL PUT NEW ORDER FOR ZOSYN.
[2017-06-05 11:12] LABS: EOSINOPHILS % (MANUAL) 1 % (0-4); LYMPHOCYTES % (MANUAL) 12 % (20-46); MONOCYTES % (MANUAL) 11 % (5-12)
--- NOTE | 2017-06-05 12:00 | NUR ---
PT EATING WELL,DENIES ANY PAIN AT THIS TIME. NO RR DISTRESS.
[2017-06-05] MEDS: PIPER/TAZO 3.375GM/D5W PREMIX 50 ML IV SCH ×2 (13:50→20:50)
--- NOTE | 2017-06-05 13:53 | NUR ---
06/05/2017 RD INITIAL ASSESSMENT COMPLETED PLEASE REFER TO NUTRITION ASSESSMENT UNDER CARE ACTIVITY FOR ESTIMATED NUTRITIONAL NEEDS. CONTINUE 60 GMS CCHO TOLERATED. ENCOURAGE INCREASED PO INTAKE TOLERATED. PROVIDE DM NUTRITION EDUCATION. RD TO FOLLOW-UP IN 3-5 DAYS PATIENT IS MODERATE RISK. RUSSELL JOSE RD
[2017-06-05 16:00] VITALS: BP 142/62
--- NOTE | 2017-06-05 16:00 | NUR ---
SUGAR CHECK DONE. NO S/S OF ACUTE DISTRESS, PT IS RESTING IN BED.
--- NOTE | 2017-06-05 19:30 | NUR ---
REPORT GIVEN TO EXCAVATION LABORER NURSE, PT IN STABLE CONDITION.
[2017-06-05] MEDS: ATORVASTATIN 20 MG TAB PO SCH (20:50)
--- NOTE | 2017-06-05 22:00 | NUR ---
PT RESTING COMFORTABLY IN BED, NO S/S OF DISTRESS NOTED. RR EVEN/UNLABORED
[2017-06-06] VITALS: BP 160/60
--- NOTE | 2017-06-06 | NUR ---
PT RESTING COMFORTABLY IN BED, NO S/S OF DISTRESS NOTED. RR EVEN/UNLABORED
[2017-06-06] MEDS: MORPHINE SULFATE 2 MG/ML SYR IVP PRN ×3 (01:44→21:00)
--- NOTE | 2017-06-06 02:30 | NUR ---
PT RESTING COMFORTABLY IN BED, NO S/S OF DISTRESS NOTED. RR EVEN/UNLABORED
[2017-06-06] MEDS: NACL 0.9% 1,000 ML IV SCH ×3 (03:09→18:33)
[2017-06-06] MEDS: PIPER/TAZO 3.375GM/D5W PREMIX 50 ML IV SCH ×3 (05:41→20:48)
[2017-06-06] MEDS: BLOOD GLUCOSE MONITORING 1 DEV DEV FS SCH ×4 (06:45→21:00)
--- NOTE | 2017-06-06 07:20 | NUR ---
REPORT GIVEN TO DAY SHIFT NURSE FOR CONTINUITY OF CARE, PT IN STABLE CONDITION.
--- NOTE | 2017-06-06 07:30 | NUR ---
RECEIVED REPORT FROM FRONTEND ENGINEER NURSE. PT IS AAOX4. NO S/S OF DISTRESS NOTED ON ROOM AIR. IV NOTED TO L FA 22G, PATENT AND INTACT, INFUSING WELL. SKIN WARM AND DRY TO TOUCH. PT S/P R PINKY TOE AMPUTATION. DRESSING DRY AND INTACT. INITIAL ASSESSMENT COMPLETED. PLAN OF CARE DISCUSSED WITH PT, VERBALIZED UNDERSTANDING. ALL SAFETY PRECAUTIONS MET, CALL LIGHT WITHIN REACH, BOARD UPDATED WILL CONTINUE TO MONITOR.
[2017-06-06 07:49] LABS: MAGNESIUM 1.7 mg/dL (1.8-2.4); PHOSPHORUS 3.4 mg/dL (2.5-4.9)
[2017-06-06 08:00] VITALS: BP 145/77
[2017-06-06 08:21] LABS: ANION GAP 16.5 (8-16); CARBON DIOXIDE 19.6 mmol/L (21-32); CREATININE 1.2 mg/dL (0.7-1.3); POTASSIUM 4.1 mmol/L (3.5-5.1)
[2017-06-06 08:26] LABS: HEMATOCRIT 24.7 % (36-52); HEMOGLOBIN 8.3 g/dL (12.0-18.0); MEAN CORPUSCULAR HEMOGLOBIN 28 pg (27-31); MEAN CORPUSCULAR HGB CONC 34 g/dL (33-37); MEAN CORPUSCULAR VOLUME 84.1 fL (80-94); PLATELET COUNT (AUTO) 585 K/uL (140-450); RED BLOOD CELL COUNT(AUTO) 2.94 MIL/uL (4.20-6.10); RED CELL DISTRIBUTION WIDTH 12.8 % (11.6-13.7); WHITE BLOOD COUNT (AUTO) 23.3 K/uL (4.8-10.8)
[2017-06-06] MEDS: LISINOPRIL 5 MG TAB PO SCH (09:20)
[2017-06-06] MEDS: LACTOBACILLUS RHAMNOSUS GG 1 EACH CAP PO SCH (09:20)
[2017-06-06 10:00] LABS: EOSINOPHILS % (MANUAL) 2 % (0-4); LYMPHOCYTES % (MANUAL) 8 % (20-46); MONOCYTES % (MANUAL) 9 % (5-12)
--- NOTE | 2017-06-06 10:00 | NUR ---
TOOK PT TO SHOWER. RIGHT FOOT DRESSING COVERED WITH PLASTIC BAG.
[2017-06-06] MEDS ORDERED: FLUCONAZOLE 100 MG TAB PO SCH (10:30)
--- NOTE | 2017-06-06 10:40 | NUR ---
BROUGHT PT BACK TO BED FROM SHOWER. PT'S RIGHT FOOT DRESSING IS DRY AND INTACT.
--- NOTE | 2017-06-06 11:01 | NUR ---
PT C/O PAIN DUE TO SHOWER ACTIVITY. WILL MEDICATE
[2017-06-06] MEDS ORDERED: VANCOMYCIN PER PHARMACY MC PRN (11:20)
[2017-06-06] MEDS: VANCOMYCIN HCL 1,250 MG in DEXTROSE 5% 250 ML IV SCH (13:44)
--- NOTE | 2017-06-06 14:30 | NUR ---
PT WAS TAKEN TO OR FOR I&D.
[2017-06-06] MEDS ORDERED: fentaNYL 0.05 MG/ML VIAL ONE (14:47)
[2017-06-06] MEDS ORDERED: BUPIVACAINE-MPF 0.25% 30 ML VIAL INJ ONE (14:47)
[2017-06-06] MEDS ORDERED: MAGNESIUM OXIDE 400 MG TAB PO SCH (15:00)
[2017-06-06] MEDS ORDERED: diphenhydrAMINE 50 MG/ML VIAL ONE (15:04)
[2017-06-06] MEDS ORDERED: LIDOCAINE 2% 1000 MG/50 ML VIAL INJ ONE (15:40)
[2017-06-06] MEDS ORDERED: BLOOD GLUCOSE MONITORING 1 DEV DEV FS SCH (15:44)
[2017-06-06] MEDS ORDERED: MORPHINE SULFATE 2 MG/ML SYR IVP PRN (15:45)
[2017-06-06 16:00] VITALS: BP 135/71
--- NOTE | 2017-06-06 16:30 | NUR ---
PT IS BACK TO THE UNIT. VITALS TAKEN, DOCUMENTED. Addendum: 06/06/17 at 1939 by Jeffrey Chahal RN NO S/S OF ACUTE DISTRESS AT THIS TIME, DENIES PAIN.
--- NOTE | 2017-06-06 19:32 | NUR ---
ENDORSED PT TO MANAGER OF REVENUE. PT IN STABLE CONDITION.
--- NOTE | 2017-06-06 19:42 | NUR ---
RECEIVED REPORT FROM EDGING CATCHER NURSE. PT IS AAOX4. NO S/S OF DISTRESS NOTED ON ROOM AIR. IV NOTED TO L FA 22G, PATENT AND INTACT, INFUSING WELL. SKIN WARM AND DRY TO TOUCH. PT S/P DAY 2 OF R PINKY TOE AMPUTATION. DRESSING DRY AND INTACT. INITIAL ASSESSMENT COMPLETED. PLAN OF CARE DISCUSSED WITH PT, VERBALIZED UNDERSTANDING. ALL SAFETY PRECAUTIONS MET, CALL LIGHT WITHIN REACH, BOARD UPDATED WILL CONTINUE TO MONITOR. Addendum: 06/06/17 at 1942 by Jeffrey Chahal RN WRONG TIME ENTERED. PLEASE DISCARD
--- NOTE | 2017-06-06 19:45 | NUR ---
RECEIVED PT FROM DAY SHIFT NURSE ARABELLA-RN. AOX4, ON ROOM AIR. AMBULATORY WITH ASSIST. RIGHT PINKY TOE AMPUTATION 06/04. LEFT FA #22G. NO S/S OF RESPIRATORY DISTRESS OR DISCOMFORT NOTED AT THIS TIME. BED IN LOWEST POSITION. CALL LIGHT WITHIN REACH. WILL CONTINUE TO MONITOR.
[2017-06-06] MEDS: ATORVASTATIN 20 MG TAB PO SCH (20:48)
--- NOTE | 2017-06-06 20:48 | NUR ---
PT TOLERATED WELL SCHEDULED MEDICATIONS. WILL CONTINUE TO MONITOR.
--- NOTE | 2017-06-06 21:00 | NUR ---
PT C/O PAIN 10/24. PAIN MEDICATION ADMINISTERED PER DR ORDER. WILL CONTINUE TO MONITOR.
--- NOTE | 2017-06-06 21:52 | NUR ---
BLOOD GLUCOSE 177. INSULIN GIVEN PER SLIDING SCALE. PT TOLERATED MEDICATION WELL. WILL CONTINUE TO MONITOR.
[2017-06-06] MEDS: INSULIN LISPRO SLIDING SCALE 100 UNITS/ML VIAL SUBQ PRN (22:13)
--- NOTE | 2017-06-06 23:45 | NUR ---
PT SLEEPING AT THIS TIME. NO S/S OF RESPIRATORY DISTRESS NOTED AT THIS TIME. BED IN LOWEST POSITION. CALL LIGHT WITHIN REACH. WILL CONTINUE TO MONITOR.
[2017-06-07] VITALS: BP 159/72
[2017-06-07] MEDS: VANCOMYCIN HCL 1,250 MG in DEXTROSE 5% 250 ML IV SCH ×2 (00:52→13:00)
--- NOTE | 2017-06-07 01:32 | NUR ---
PT SLEEPING AT THIS TIME. NO S/S OF RESPIRATORY DISTRESS OR DISCOMFORT AT THIS TIME. BED IN LOWEST POSITION. CALL LIGHT WITHIN REACH. WILL CONTINUE TO MONITOR.
[2017-06-07] MEDS: NACL 0.9% 1,000 ML IV SCH ×3 (02:15→20:54)
--- NOTE | 2017-06-07 03:16 | NUR ---
PT SLEEPING AT THIS TIME. NO S/S OF RESPIRATORY DISTRESS OR DISCOMFORT NOTED AT THIS TIME. BED IN LOWEST POSITION. CALL LIGHT WITHIN REACH. WILL CONTINUE TO MONITOR.
[2017-06-07] MEDS: PIPER/TAZO 3.375GM/D5W PREMIX 50 ML IV SCH ×3 (04:26→20:54)
--- NOTE | 2017-06-07 04:26 | NUR ---
SCHEDULED MEDICATION GIVEN. PT TOLERATED WELL. CONTINUES TO SLEEP. S/S OF RESPIRATORY DISTRESS OR DISCOMFORT NOTED AT THIS TIME. BED IN LOWEST POSITION. CALL LIGHT WITHIN REACH. WILL CONTINUE TO MONITOR.
[2017-06-07] MEDS: BLOOD GLUCOSE MONITORING 1 DEV DEV FS SCH ×4 (06:13→20:34)
[2017-06-07] MEDS: INSULIN LISPRO SLIDING SCALE 100 UNITS/ML VIAL SUBQ PRN ×3 (06:52→22:20)
[2017-06-07 07:27] LABS: MAGNESIUM 1.7 mg/dL (1.8-2.4); PHOSPHORUS 3.6 mg/dL (2.5-4.9)
[2017-06-07 07:32] LABS: ANION GAP 12.7 (8-16); CARBON DIOXIDE 22.5 mmol/L (21-32); CREATININE 1.1 mg/dL (0.7-1.3); POTASSIUM 4.2 mmol/L (3.5-5.1)
--- NOTE | 2017-06-07 07:32 | NUR ---
ENDORSED PT TO DAY SHIFT NURSE JULIA FOR CONTINUITY OF CARE. PT STABLE AT THIS TIME.
--- NOTE | 2017-06-07 07:32 | NUR ---
RECEIVED REPORT FROM PROGRAM MANAGER TRANSPORTATION RN. PATIENT IS AAOX4, NO SIGNS AND SYMPTOMS OF ACUTE DISTRESS NOTED AT THIS TIME. HAS IV TO THE RIGHT HAND 20G INFUSING NS AT 130 ML/HR. INFUSING WELL AT THIS TIME. PATIENT IS S/P RIGHT PINKY TOE AMPUTATION, DRESSING IS DRY AND INTACT. AMBULATES WITH WALKER. DISCUSSED PLAN OF CARE WITH PATIENT AND HE VERBALIZED UNDERSTANDING. BED IS IN LOWEST POSITION, SIDE RAILS UP X2, CALL LIGHT WITHIN REACH. WILL CONTINUE TO MONITOR.
[2017-06-07 07:48] LABS: PROTHROMBIN TIME 12.3 secs (10.8-13.4)
[2017-06-07 08:00] VITALS: BP 147/72
[2017-06-07] MEDS: LACTOBACILLUS RHAMNOSUS GG 1 EACH CAP PO SCH (09:00)
[2017-06-07] MEDS: FLUCONAZOLE 100 MG TAB PO SCH (09:31)
[2017-06-07] MEDS: LISINOPRIL 5 MG TAB PO SCH (09:32)
[2017-06-07] MEDS ORDERED: metroNIDAZOLE 500 MG/NS PREMIX 100 ML IV SCH ×2 (09:50→10:36)
[2017-06-07] MEDS: HYDROcodone/APAP 7.5/325 MG 1 TAB PO PRN (09:52)
[2017-06-07 11:35] LABS: BASOPHILS # (AUTO) 0.2 K/uL (0.00-0.22); BASOPHILS % (AUTO) 1.1 % (0.0-2.0); EOSINOPHILS # (AUTO) 0.7 K/uL (0-0.4); EOSINOPHILS % (AUTO) 3.2 % (0.0-4.0); HEMATOCRIT 23.7 % (36-52); HEMOGLOBIN 8.1 g/dL (12.0-18.0); LYMPHOCYTES # (AUTO) 2.9 K/uL (2.0-11.5); LYMPHOCYTES % (AUTO) 14.1 % (20.5-51.1); MEAN CORPUSCULAR HEMOGLOBIN 28 pg (27-31); MEAN CORPUSCULAR HGB CONC 34 g/dL (33-37); MEAN CORPUSCULAR VOLUME 82.6 fL (80-94); MONOCYTES % (AUTO) 4.9 % (1.7-9.3); NEUTROPHILS # (AUTO) 16.1 K/uL (1.8-7.7); NEUTROPHILS % (AUTO) 76.7 % (42.2-75.2); PLATELET COUNT (AUTO) 556 K/uL (140-450); RED BLOOD CELL COUNT(AUTO) 2.87 MIL/uL (4.20-6.10); RED CELL DISTRIBUTION WIDTH 12.9 % (11.6-13.7)
[2017-06-07 11:45] LABS: WHITE BLOOD COUNT (AUTO) 20.9 K/uL (4.8-10.8)
[2017-06-07 11:52] LABS: ANION GAP 12.4 (8-16); CARBON DIOXIDE 22.8 mmol/L (21-32); CREATININE 1.2 mg/dL (0.7-1.3); POTASSIUM 4.2 mmol/L (3.5-5.1)
[2017-06-07] MEDS: metroNIDAZOLE 500 MG/NS PREMIX 100 ML IV SCH ×2 (14:11→20:54)
--- NOTE | 2017-06-07 15:15 | NUR ---
PHYSICAL THERAPY CO-SIGN The Physical Therapy Progress Notes documented by Co Founder And Chairman have been reviewed. I concur with the documentation of this INSTANT PRINTER OPERATOR. Plan: continue PT as per plan of care if he remains in this hospital. Reviewed/Co-Signed by: Regina Silverio, PT Documentation Done by: Karley Vigil, INSTANT PRINTER OPERATOR Addendum: 06/07/17 at 1527 by Regina Silverio PT Amended: Links added.
[2017-06-07] MEDS ORDERED: MAGNESIUM OXIDE 400 MG TAB PO SCH (15:40)
[2017-06-07] MEDS ORDERED: FUROSEMIDE 20 MG/2 ML VIAL IVP SCH (15:45)
[2017-06-07 16:00] VITALS: BP 164/82
--- NOTE | 2017-06-07 19:17 | NUR ---
ENDORSED PATIENT TO POLYGRAPH OPERATOR RN FOR CONTINUITY OF CARE. PATIENT IN STABLE CONDITION.
--- NOTE | 2017-06-07 19:25 | NUR ---
RECEIVED REPORT FROM DAY SHIFT RN, PATIENT RESTING IN BED, NO S/S OF DISTRESS NOTED, RESPIRATION EVEN AND UNLABORED, FAMILY AT THE BEDSIDE. IV PATENT AND INTACT, INFUSING NS 50ML/HR. PLAN OF CARE DISCUSSED, PATIENT VERBALIZED UNDERSTANDING. CALL LIGHT WITHIN REACH, SAFETY MEASURE ENSURED, WILL CONTINUE TO MONITOR.
--- NOTE | 2017-06-07 20:50 | NUR ---
DUE MEDICATION GIVEN, PATIENT TOLERATED WELL. RESPIRATION EVEN AND UNLABORED. CALL LIGHT WITHIN REACH, SAFETY MEASURE ENSURED, WILL CONTINUE TO MONITOR.
[2017-06-07] MEDS: ATORVASTATIN 20 MG TAB PO SCH (20:54)
--- NOTE | 2017-06-07 22:20 | NUR ---
HUMALOG WAS NOT AVAILABLE, CALLED RED CROSS WORKER, WAS INFORMED THAT [facility]ER[facility]D WOULD BRING HUMALOG TO US. HUMALOG IS DELIVERED, BS 210, 4 UNITS IS ADMINISTERED, WILL CONTINUE TO MONITOR.
[2017-06-07 23:43] VITALS: BP 143/52
--- NOTE | 2017-06-08 00:09 | NUR ---
VITAL SIGNS STABLE, RESPIRATION EVEN AND UNLABORED, ON ROOM AIR. CALL LIGHT WITHIN REACH, SAFETY MEASURE ENSURED, WILL CONTINUE TO MONITOR.
[2017-06-08] MEDS: VANCOMYCIN HCL 1,250 MG in DEXTROSE 5% 250 ML IV SCH ×2 (00:13→13:00)
--- NOTE | 2017-06-08 02:29 | NUR ---
PATIENT IS SLEEPING, RESPIRATION EVEN AND UNLABORED, ON ROOM AIR. CALL LIGHT WITHIN REACH, SAFETY MEASURE ENSURED, WILL CONTINUE TO MONITOR.
[2017-06-08] MEDS: PIPER/TAZO 3.375GM/D5W PREMIX 50 ML IV SCH ×2 (04:12→12:58)
[2017-06-08] MEDS: metroNIDAZOLE 500 MG/NS PREMIX 100 ML IV SCH ×3 (04:12→21:12)
--- NOTE | 2017-06-08 04:17 | NUR ---
DUE MEDICATION GIVEN, PATIENT TOLERATED WELL. RESPIRATION EVEN AND UNLABORED, ON ROOM AIR. CALL LIGHT WITHIN REACH, SAFETY MEASURE ENSURED, WILL CONTINUE TO MONITOR.
[2017-06-08] MEDS: BLOOD GLUCOSE MONITORING 1 DEV DEV FS SCH ×4 (06:55→21:12)
--- NOTE | 2017-06-08 07:04 | NUR ---
ENDORSED PLAN OF CARE TO DAY SHIFT NURSE. PATIENT IS IN STABLE CONDITION.
--- NOTE | 2017-06-08 07:05 | NUR ---
RECEIVED REPORT FROM 3RD PRESSMAN RN. PATIENT IS AAOX4, NO SIGNS AND SYMPTOMS OF ACUTE DISTRESS NOTED AT THIS TIME. HAS IV TO THE RIGHT HAND 20G INFUSING NS AT 50 ML/HR. INFUSING WELL AT THIS TIME. PATIENT IS S/P RIGHT PINKY TOE AMPUTATION, DRESSING IS DRY AND INTACT. AMBULATES WITH WALKER. DISCUSSED PLAN OF CARE WITH PATIENT AND HE VERBALIZED UNDERSTANDING. BED IS IN LOWEST POSITION, SIDE RAILS UP X2, CALL LIGHT WITHIN REACH. WILL CONTINUE TO MONITOR.
[2017-06-08 07:28] LABS: ANION GAP 12.4 (8-16); CARBON DIOXIDE 24.5 mmol/L (21-32); CREATININE 1.2 mg/dL (0.7-1.3); POTASSIUM 3.9 mmol/L (3.5-5.1)
[2017-06-08 07:36] LABS: MAGNESIUM 1.7 mg/dL (1.8-2.4); PHOSPHORUS 4.2 mg/dL (2.5-4.9)
[2017-06-08 07:59] LABS: BASOPHILS # (AUTO) 0.4 K/uL (0.00-0.22); BASOPHILS % (AUTO) 2.4 % (0.0-2.0); EOSINOPHILS # (AUTO) 1.2 K/uL (0-0.4); EOSINOPHILS % (AUTO) 6.6 % (0.0-4.0); HEMATOCRIT 25.4 % (36-52); HEMOGLOBIN 8.3 g/dL (12.0-18.0); LYMPHOCYTES # (AUTO) 2.3 K/uL (2.0-11.5); LYMPHOCYTES % (AUTO) 12.7 % (20.5-51.1); MEAN CORPUSCULAR HEMOGLOBIN 28 pg (27-31); MEAN CORPUSCULAR HGB CONC 33 g/dL (33-37); MEAN CORPUSCULAR VOLUME 84.7 fL (80-94); MONOCYTES # (AUTO) 1.8 K/uL (0.8-1.0); MONOCYTES % (AUTO) 9.8 % (1.7-9.3); NEUTROPHILS # (AUTO) 12.3 K/uL (1.8-7.7); NEUTROPHILS % (AUTO) 68.5 % (42.2-75.2); PLATELET COUNT (AUTO) 618 K/uL (140-450); RED BLOOD CELL COUNT(AUTO) 2.99 MIL/uL (4.20-6.10); RED CELL DISTRIBUTION WIDTH 12.6 % (11.6-13.7)
[2017-06-08 08:00] VITALS: BP 181/83
[2017-06-08] MEDS: LISINOPRIL 5 MG TAB PO SCH (08:09)
[2017-06-08] MEDS: HYDROcodone/APAP 7.5/325 MG 1 TAB PO PRN (08:09)
[2017-06-08] MEDS: FLUCONAZOLE 100 MG TAB PO SCH (08:09)
[2017-06-08] MEDS: LACTOBACILLUS RHAMNOSUS GG 1 EACH CAP PO SCH (08:09)
--- NOTE | 2017-06-08 14:07 | NUR ---
PATIENTS IV SITE WAS LEAKING AND LOOKED REDDISH AROUND THE SITE. DISCONTINUED FROM SITE AND STARTED NEW IV SITE ON THE LEFT FOREARM 22G. CONNECTED PATIENT BACK TO IV FLUID, CURRENTLY INFUSING FLAGYL. SITE IS CLEAN, DRY, PATENT AND INTACT. WILL CONTINUE TO MONITOR PATIENT.
[2017-06-08 16:00] VITALS: BP 176/81
[2017-06-08] MEDS: INSULIN LISPRO SLIDING SCALE 100 UNITS/ML VIAL SUBQ PRN ×2 (16:31→21:13)
[2017-06-08] MEDS ORDERED: LISINOPRIL 5 MG TAB PO ONE (16:45)
--- NOTE | 2017-06-08 19:17 | NUR ---
ENDORSED PATIENT TO CYLINDER TESTER RN FOR CONTINUITY OF CARE. PATIENT IN STABLE CONDITION.
--- NOTE | 2017-06-08 19:18 | NUR ---
RECEIVED REPORT FROM MONEY POSITION OFFICER RN, PT IS A/OX4, ON ROOM AIR. PT AMBULATES WITH WALKER. PT HAS 22G IV TO LEFT FOREARM. PT S/P RIGHT FOOT 5TH TOE AMPUTATION, DRESSING DRY AND INTACT, OTHERWISE SKIN INTACT. UPDATED BOARD. DISCUSSED PLAN OF CARE WITH PT, PT VERBALIZED UNDERSTANDING. VITAL SIGNS WITHIN NORMAL LIMITS. PT IN STABLE CONDITION, NO SIGNS OF DISTRESS NOTED. BED IN LOWEST POSITION, CALL LIGHT WITHIN REACH. WILL CONTINUE TO MONITOR.
[2017-06-08] MEDS: NACL 0.9% 1,000 ML IV SCH (21:00)
[2017-06-08] MEDS: PIPERACILLIN/TAZOBACTAM 3.375 GM in DEXTROSE 5% 50 ML IV SCH (21:12)
[2017-06-08] MEDS: ATORVASTATIN 20 MG TAB PO SCH (21:13)
--- NOTE | 2017-06-08 21:15 | NUR ---
ADMINISTERED SCHEDULED MEDICATIONS, PT TOLERATED WELL. PT IN STABLE CONDITION, NO SIGNS OF DISTRESS NOTED. BED IN LOWEST POSITION, CALL LIGHT WITHIN REACH. WILL CONTINUE TO MONITOR.
[2017-06-09] VITALS: BP 148/77
--- NOTE | 2017-06-09 | NUR ---
VITAL SIGNS WITHIN NORMAL LIMITS. PT IN STABLE CONDITION, NO SIGNS OF DISTRESS NOTED. BED IN LOWEST POSITION, CALL LIGHT WITHIN REACH. WILL CONTINUE TO MONITOR.
[2017-06-09] MEDS: VANCOMYCIN HCL 1,250 MG in DEXTROSE 5% 250 ML IV SCH ×2 (01:00→12:39)
--- NOTE | 2017-06-09 04:00 | NUR ---
VITAL SIGNS WITHIN NORMAL LIMITS. PT IN STABLE CONDITION, NO SIGNS OF DISTRESS NOTED. BED IN LOWEST POSITION, CALL LIGHT WITHIN REACH. WILL CONTINUE TO MONITOR.
[2017-06-09] MEDS: metroNIDAZOLE 500 MG/NS PREMIX 100 ML IV SCH ×3 (05:00→22:23)
[2017-06-09] MEDS: PIPERACILLIN/TAZOBACTAM 3.375 GM in DEXTROSE 5% 50 ML IV SCH ×3 (05:01→22:23)
[2017-06-09] MEDS: BLOOD GLUCOSE MONITORING 1 DEV DEV FS SCH ×4 (06:37→20:35)
[2017-06-09] MEDS: INSULIN LISPRO SLIDING SCALE 100 UNITS/ML VIAL SUBQ PRN ×3 (06:37→20:36)
--- NOTE | 2017-06-09 07:31 | NUR ---
ENDORSED PT IN STABLE CONDITION TO DAY SHIFT RN FOR CONTINUITY OF CARE.
[2017-06-09 07:35] LABS: BASOPHILS # (AUTO) 0.4 K/uL (0.00-0.22); EOSINOPHILS # (AUTO) 0.8 K/uL (0-0.4); EOSINOPHILS % (AUTO) 4.2 % (0.0-4.0); HEMOGLOBIN 8.7 g/dL (12.0-18.0); LYMPHOCYTES # (AUTO) 1.9 K/uL (2.0-11.5); LYMPHOCYTES % (AUTO) 9.7 % (20.5-51.1); MEAN CORPUSCULAR HEMOGLOBIN 28 pg (27-31); MEAN CORPUSCULAR HGB CONC 34 g/dL (33-37); MEAN CORPUSCULAR VOLUME 83.9 fL (80-94); MONOCYTES % (AUTO) 10.4 % (1.7-9.3); NEUTROPHILS # (AUTO) 14.3 K/uL (1.8-7.7); NEUTROPHILS % (AUTO) 73.7 % (42.2-75.2); PLATELET COUNT (AUTO) 680 K/uL (140-450); RED BLOOD CELL COUNT(AUTO) 3.09 MIL/uL (4.20-6.10); RED CELL DISTRIBUTION WIDTH 12.5 % (11.6-13.7); WHITE BLOOD COUNT (AUTO) 19.4 K/uL (4.8-10.8)
--- NOTE | 2017-06-09 07:50 | NUR ---
ENDORSEMENT RECEIVED FROM HYDROGRAPHER NURSE. PATIENT IS AWAKE, ALERT. RESPIRATION EVEN, UNLABOR ON ROOM AIR. SKIN DRY AND WARM. IV PATENT AND INTACT. DENIED PAIN AT THIS TIME. COMPLAINED OF DIARRHEA X 2DAYS, WILL FOLLOW UP WITH MD. PLAN OF CARE WAS DISCUSSED WITH PATIENT. BED AT LOW POSITION, SIDE RAILS UP. CALL LIGHT WITHIN REACH
[2017-06-09 08:00] VITALS: BP 147/62
[2017-06-09] MEDS: LACTOBACILLUS RHAMNOSUS GG 1 EACH CAP PO SCH (08:42)
[2017-06-09] MEDS: FLUCONAZOLE 100 MG TAB PO SCH (08:42)
[2017-06-09] MEDS ORDERED: LISINOPRIL 5 MG TAB PO SCH (09:00)
--- NOTE | 2017-06-09 12:34 | NUR ---
PATIENT AWAKE, ALERT. RESPIRATION EVEN, UNLABOR ON ROOM AIR. DR. SANCHEZ WAS AT BEDSIDE DOING DRESSING CHANGE. WOUND PHOTOS WERE TAKEN. PATIENT TOLERATED WELL. PAIN MED WAS OFFERED, PATIENT REFUSED. CALL LIGHT WITHIN REACH
[2017-06-09] MEDS: NACL 0.9% 1,000 ML IV SCH (12:39)
[2017-06-09 16:00] VITALS: BP 155/75
--- NOTE | 2017-06-09 16:00 | NUR ---
PATIENT IS SLEEPING COMFORTABLY, EASILY AROUSABLE BY NAME. RESPIRATION EVEN, UNLABOR ON ROOM AIR. DENIED PAIN, SOB. NO DISTRESS NOTED AT THIS TIME. CALL LIGHT WITHIN REACH
--- NOTE | 2017-06-09 17:43 | NUR ---
PHYSICAL THERAPY CO-SIGN The Physical Therapy Progress Notes documented by City Designer have been reviewed. Reviewed/Co-Signed by: Kathleen Milton Documentation Done by: Griffin Mcmahon PTA Patient delio tx well, progressing towards goals, cont with PT POC as delio/safe. Addendum: 06/09/17 at 1743 by Kathleen Milton PT Amended: Links added.
--- NOTE | 2017-06-09 18:11 | NUR ---
PATIENT REFUSED TO EAT DINNER. INSULIN SLIDING SCALE IS HELD
--- NOTE | 2017-06-09 19:18 | NUR ---
ENDORSEMENT GIVEN TO THE DRUM STRAIGHTENER NURSE. PATIENT IS STABLE AT THIS TIME
--- NOTE | 2017-06-09 19:20 | NUR ---
RECEIVED PT FROM BURAK RN PT AAOX4 RESTING ON BED IV ON LEFT HAND INFUSING WELL, RT FOOT DRESSING DRY AND INTACT ON PILLOW ELEVATION NOT PAIN , NOT DISTRESS NOTED, SKYLER FROM PHARMACY GIVE VANCOMYCIN IVPB AND SAID OK TO GIVE TO THE PT INITIAL ASSESSMENT DONE
[2017-06-09] MEDS: VANCOMYCIN HCL 1,250 MG in NACL 0.9% 250 ML IV SCH (19:36)
[2017-06-09 20:00] VITALS: BP 146/68
[2017-06-09] MEDS: ATORVASTATIN 20 MG TAB PO SCH (20:38)
--- NOTE | 2017-06-09 21:30 | NUR ---
BLOOD SUGAR TEST 259 COVERAGE WITH HUMALOG SUBQ 6 UNITS FOLLOWING PROTOCOL
[2017-06-10] VITALS: BP 144/69
--- NOTE | 2017-06-10 | NUR ---
PT SLEEPING WELL NOT DISTRESS NOTED RT FOOT ON PILLOW ELEVATION DRESSING DRY AND INTACT
--- NOTE | 2017-06-10 04:00 | NUR ---
SPONGE BATH GIVEN LINEN CHANGED , DR BUTLER WAS NOTIFY VITAL SIGN AT 0400 AM VITAL SIGN AND HE INCREASE THE DOSES OF HIGH BLOOD PRESSURES MEDICATION WILL BE GIVEN AT MORNING SCHEDULE ORDER TO FOLLOW
[2017-06-10] MEDS: PIPERACILLIN/TAZOBACTAM 3.375 GM in DEXTROSE 5% 50 ML IV SCH ×3 (05:01→21:43)
[2017-06-10] MEDS: metroNIDAZOLE 500 MG/NS PREMIX 100 ML IV SCH ×3 (05:01→21:43)
[2017-06-10] MEDS: BLOOD GLUCOSE MONITORING 1 DEV DEV FS SCH ×4 (06:11→20:41)
[2017-06-10] MEDS: INSULIN LISPRO SLIDING SCALE 100 UNITS/ML VIAL SUBQ PRN ×3 (06:12→20:43)
--- NOTE | 2017-06-10 06:46 | NUR ---
BLOOD SUGAR TEST 156 COVERAGE WITH 2 UNITS SUBQ HUMALOG FOLLOWING PROTOCOL PT REMAIN STBLE NOT DISTRESS NOTED RT LE ON PILLOW ELEVATION DRESSING DRY AND INTACT
[2017-06-10 06:49] LABS: HEMATOCRIT 27.9 % (36-52); HEMOGLOBIN 9.2 g/dL (12.0-18.0); MEAN CORPUSCULAR HEMOGLOBIN 28 pg (27-31); MEAN CORPUSCULAR HGB CONC 33 g/dL (33-37); MEAN CORPUSCULAR VOLUME 84.6 fL (80-94); WHITE BLOOD COUNT (AUTO) 20.6 K/uL (4.8-10.8)
--- NOTE | 2017-06-10 07:20 | NUR ---
RECEIVED REPORT FROM THE IMPLEMENTATION TECHNICIAN NURSE AT BEDSIDE FOR CONTINUITY OF CARE. PT IS AWAKE AND ORIENTED. HAD R PINKY TOE AMPUTATION ON 06/04 AND DEBRIDEMENT ON 06/06. IV ON L FA 22G NS AT 50ML INFUSING. NO SIGNS OF DISTRESS. WILL CONTINUE TO MONITOR PT.
[2017-06-10 08:00] VITALS: BP 141/67
[2017-06-10] MEDS: LISINOPRIL 5 MG TAB PO SCH (08:39)
[2017-06-10] MEDS: VANCOMYCIN HCL 1,250 MG in NACL 0.9% 250 ML IV SCH ×2 (08:39→19:41)
[2017-06-10] MEDS: FLUCONAZOLE 100 MG TAB PO SCH (08:40)
[2017-06-10] MEDS: NACL 0.9% 1,000 ML IV SCH (08:40)
[2017-06-10] MEDS: LACTOBACILLUS RHAMNOSUS GG 1 EACH CAP PO SCH (08:40)
[2017-06-10] MEDS: amLODIPine 5 MG TAB PO SCH (08:40)
--- NOTE | 2017-06-10 08:45 | NUR ---
ADMINISTERED SCHEDULED MEDICATIONS. PT TOLERATED WELL. NO SIGNS OF DISTRESS. NO COMPLAINTS AT THIS TIME. WILL CONTINUE TO MONITOR PT.
[2017-06-10 09:31] LABS: PLATELET COUNT (AUTO) 783 K/uL (140-450)
--- NOTE | 2017-06-10 12:00 | NUR ---
PT GOING FOR CT IN WHEELCHAIR WITH TECH.
--- NOTE | 2017-06-10 12:39 | NUR ---
CAME BACK FROM CT. RECONNECTED PT BACK ON FLUIDS. CHECKED BLOOD SUGAR. 150. NO COVERAGE NEEDED. NOW EATING LUNCH.
--- NOTE | 2017-06-10 13:32 | NUR ---
06/10/17 RD FOLLOW UP COMPLETED. PLEASE REFER TO NUTRITION ASSESSMENT UNDER CARE ACTIVITY FOR ESTIMATED NUTRITIONAL NEEDS. CONTINUE 60 GMS CCHO TOLERATED. ENCOURAGE INCREASED PO INTAKE TOLERATED. RD TO FOLLOW-UP IN 5-7 DAYS PATIENT IS LOW RISK. RUSSELL JOSE, RD
--- NOTE | 2017-06-10 14:19 | NUR ---
PT REFUSED P/T. C/O EVANS. WILL FOLLOW UP ON PT.
--- NOTE | 2017-06-10 14:45 | NUR ---
PT NOTES CHART REVIEWED. CLEARED BY RN FOR P.T. TX. ATTEMPTED TO SEE PATIENT FOR TX. HOWEVER PATIENT DECLINED TO PARTICIPATE. PATIENT WAS EDUCATED ON THE IMPORTANCE OF THERAPY PARTICIPATION & GIVEN ENCOURAGEMENT, BUT PATIENT CONTINUED TO DECLINE. PATIENT C/O HEADACHE. ADDITIONALLY, PATIENT EDUCATED ON THER EX IN SUPINE TO PROMOTE STRENGTHENING TO LOWER EXTREMITIES. RN IS AWARE PATIENT DECLINED P.T. TX. DISCUSSED W/ PRIMARY PHYSICAL THERAPIST. PVE TIME [phone] Addendum: 06/10/17 at 1715 by Debbi Recio PT PHYSICAL THERAPY CO-SIGN The Physical Therapy Progress Notes documented by Development System Efficiency Manager have been reviewed. Reviewed/Co-Signed by: Debbi Recio PT Documentation Done by:DANIEL DAVIS PUBLIC HEALTH PROFESSOR POC REVIEWED W/ PUBLIC HEALTH PROFESSOR; WILL BENEFIT W/ P.T. AFTER ACUTE STAY PRIOR TO RETURNING HOME; 06/10/17 CT R LE:POST SX CHANGE W/ AMPU 5th DIGIT DISTAL MT; SUBCHONDRAL CYST FORMATION DISTAL 2nd & 4th MT; POSS TMA 06/11/17 PER PODIATRY NOTE; WILL NEED P.T.RE EVAL POST OP ORDER IF SX OCCURS.
[2017-06-10 15:06] LABS: EOSINOPHILS % (MANUAL) 3 % (0-4); LYMPHOCYTES % (MANUAL) 16 % (20-46); MONOCYTES % (MANUAL) 8 % (5-12)
[2017-06-10 15:22] LABS: ANION GAP 15.5 (8-16); CARBON DIOXIDE 22.9 mmol/L (21-32); CREATININE 1.1 mg/dL (0.7-1.3); POTASSIUM 4.4 mmol/L (3.5-5.1)
[2017-06-10 15:23] LABS: ALBUMIN 1.4 g/dL (3.4-5.0); MAGNESIUM 1.9 mg/dL (1.8-2.4); PHOSPHORUS 4.2 mg/dL (2.5-4.9); TOTAL BILIRUBIN 0.2 mg/dL (0.0-1.0)
[2017-06-10 16:00] VITALS: BP 167/75
--- NOTE | 2017-06-10 16:00 | NUR ---
PT NEEDED TO GO TO THE BATHROOM. WANTED HIS IVF DISCONNECTED. DISCONNECTED IVF. C/O EVANS. WILL GIVE HIM KRISTY.
[2017-06-10] MEDS: HYDROcodone/APAP 7.5/325 MG 1 TAB PO PRN (16:07)
--- NOTE | 2017-06-10 18:17 | NUR ---
PT RESTING COMFORTABLY. NO SIGNS OF DISTRESS. NO COMPLAINTS AT THIS TIME. WILL CONTINUE TO MONITOR PT.
--- NOTE | 2017-06-10 19:10 | NUR ---
ENDORSED PT TO THE SEWING TECHNIQUES DEMONSTRATOR NURSE AT BEDSIDE FOR CONTINUITY OF CARE. DAUGHTER AT BEDSIDE. PT IS IN STABLE CONDITION. PT AWARE OF NPO AFTER MIDNIGHT.
--- NOTE | 2017-06-10 19:20 | NUR ---
RECEIVED PT IN STABLE CONDITION FROM AM NURSE. AWAKE,ALERT AND ORIENTED X 4. MED SURG PT. WITH RT FOOT DRESSING. HAS IVF INFUSING WELL ON THE LT FA #22. NO C/O ANY DISCOMFORT NOR PAIN NOTED. PLAN OF CARE DISCUSSED AND VERBALIZED UNDERSTANDING. AWARE ABOUT TH SURGERY FOR TOMORROW AND NPO STATUS AFTER MN. BED ON LOW POSITION, CALL LIGHT AND URINAL WITHIN EASY REACH. WILL CONTINUE TO MONITOR.
--- NOTE | 2017-06-10 20:43 | NUR ---
BLOOD SUGAR WAS CHECKED. RESULT 221. INSULIN COVERAGE HUMALOG 4 UNITS SUB Q GIVEN ORDERED. PT REFUSED THE SNACK PROVIDED BUT HAD SOME APPLE JUICE. WILL CONTINUE TO MONITOR.
[2017-06-10] MEDS: ATORVASTATIN 20 MG TAB PO SCH (21:46)
--- NOTE | 2017-06-10 22:30 | NUR ---
ASLEEP. NO S/S OF ANY DISCOMFORT NOTED.
[2017-06-10] MEDS: ACETAMINOPHEN 325 MG TAB PO PRN (23:09)
[2017-06-11] VITALS (10 sets, daily range): BP systolic 119–169; BP diastolic 56–81
--- NOTE | 2017-06-11 00:25 | NUR ---
INSTRUCTED PT ABOUT NPO STATUS FOR THE SURGERY LATER DURING THE DAY. VERBALIZED UNDERSTANDING.
--- NOTE | 2017-06-11 03:00 | NUR ---
PT SLEEPING WELL AT THIS TIME. NO S/S OF ANY PAIN NOTED.
[2017-06-11] MEDS: NACL 0.9% 1,000 ML IV SCH ×3 (04:52→15:51)
[2017-06-11] MEDS: metroNIDAZOLE 500 MG/NS PREMIX 100 ML IV SCH (04:53)
[2017-06-11] MEDS: PIPERACILLIN/TAZOBACTAM 3.375 GM in DEXTROSE 5% 50 ML IV SCH ×3 (04:53→21:18)
[2017-06-11] MEDS: BLOOD GLUCOSE MONITORING 1 DEV DEV FS SCH ×4 (06:00→21:03)
--- NOTE | 2017-06-11 06:26 | NUR ---
BLOOD SUGAR THIS AM 151. HUMALOG 2 UNITS NOT GIVEN FOR PT NPO FOR SURGERY.
[2017-06-11 07:00] LABS: HEMATOCRIT 26.5 % (36-52); HEMOGLOBIN 8.7 g/dL (12.0-18.0); MEAN CORPUSCULAR HEMOGLOBIN 28 pg (27-31); MEAN CORPUSCULAR HGB CONC 33 g/dL (33-37); MEAN CORPUSCULAR VOLUME 84.6 fL (80-94); RED BLOOD CELL COUNT(AUTO) 3.13 MIL/uL (4.20-6.10); WHITE BLOOD COUNT (AUTO) 22.1 K/uL (4.8-10.8)
--- NOTE | 2017-06-11 07:12 | NUR ---
PT FOR SURGERY THIS AM 0730 CASE. ENDORSED PT IN STABLE CONDITION TO AM NURSE.
--- NOTE | 2017-06-11 07:13 | NUR ---
RECEIVED REPORT FROM WORKFLOW DEVELOPER NURSE AT BEDSIDE FOR CONTINUITY OF CARE. PT IS AWAKE AND ORIENTED. PER WORKFLOW DEVELOPER NURSE, DR COKER WAS HERE EARLY THIS MORNING AND NOTIFIED PT OF CHANGE OF TIME OF PROCEDURE. PT AWARE. PER WORKFLOW DEVELOPER NURSE, PRE-OP CHECK LIST DONE. PT HAS BEEN NPO SINCE MIDNIGHT. PT READY TO GO. IV ON R FA 22G NS AT 50ML. R FOOT IN DWIGHT WRAP. WILL CONTINUE TO MONITOR PT.
--- NOTE | 2017-06-11 07:15 | NUR ---
2 O/R NURSES HERE FOR PT FOR PROCEDURE. WILL AWAIT PT'S RETURN.
[2017-06-11] MEDS ORDERED: PROPOFOL 200 MG/20 ML VIAL IV ONE (07:25)
[2017-06-11] MEDS ORDERED: SEVOFLURANE 250 ML BTL INH ONE (07:25)
[2017-06-11] MEDS ORDERED: fentaNYL 0.05 MG/ML VIAL ONE (07:34)
[2017-06-11] MEDS ORDERED: MIDAZOLAM 2 MG/2 ML VIAL ONE (07:34)
[2017-06-11] MEDS ORDERED: diphenhydrAMINE 50 MG/ML VIAL IVP PRN (07:35)
[2017-06-11] MEDS ORDERED: MEPERIDINE 50 MG/ML SYR ONE (07:35)
[2017-06-11] MEDS ORDERED: ONDANSETRON 4 MG/2 ML VIAL IVP PRN (07:35)
[2017-06-11] MEDS ORDERED: MEPERIDINE 25 MG/ML SYR IVP PRN (07:35)
[2017-06-11] MEDS: BUPIVACAINE-MPF 0.5% 30 ML VIAL INJ ONE ×2 (07:52→08:34)
[2017-06-11 08:11] LABS: PLATELET COUNT (AUTO) 862 K/uL (140-450)
[2017-06-11] MEDS ORDERED: BLOOD GLUCOSE MONITORING 1 DEV DEV FS SCH (08:17)
[2017-06-11 08:46] LABS: ALBUMIN 1.3 g/dL (3.4-5.0); ANION GAP 12.5 (8-16); CARBON DIOXIDE 23.5 mmol/L (21-32); CREATININE 1.1 mg/dL (0.7-1.3); MAGNESIUM 1.8 mg/dL (1.8-2.4); PHOSPHORUS 4.1 mg/dL (2.5-4.9); TOTAL BILIRUBIN 0.1 mg/dL (0.0-1.0)
[2017-06-11] MEDS ORDERED: HYDROGEN PEROXIDE 3% 240 ML BTL TP ONE (09:20)
[2017-06-11 09:30] LABS: EOSINOPHILS % (MANUAL) 2 % (0-4); LYMPHOCYTES % (MANUAL) 15 % (20-46); MONOCYTES % (MANUAL) 8 % (5-12)
--- NOTE | 2017-06-11 10:15 | NUR ---
PATIENT BACK FROM SURGERY. RECEIVED BEDSIDE REPORT FROM 2 OR NURSES. VITAL SIGNS ARE STABLE. NO COMPLAINTS AT THIS TIME. NO S/SX OF DISTRESS ON ROOM AIR. APPLE JUICE GIVEN REQUESTED BY PATIENT. BED IN LOW POSITION. CALL LIGHT WITHIN REACH. WILL CHECK VITALS Q 15 MINS FOR AN HOUR, AND Q 30MINS THE FOLLOWING HOUR. SURGICAL SITE IS COVERED AND ELEVATED.
--- NOTE | 2017-06-11 10:25 | NUR ---
PT NOTES Patient on hold d/t s/p R TMA this am, will need new PT order to resume PT with WB prec, RN aware and to f/u with MD.
[2017-06-11] MEDS: VANCOMYCIN HCL 1,250 MG in NACL 0.9% 250 ML IV SCH ×2 (11:25→23:14)
--- NOTE | 2017-06-11 11:30 | NUR ---
PATIENT IS SLEEPING COMFORTABLY WITH NO SIGNS OF PAIN OR DISTRESS. CHECKED PATIENTS GLUCOSE, PATIENT IS EASILY AROUSABLE. BED IN LOW POSITION. CALL LIGHT WITHIN REACH. WILL CONTINUE TO MONITOR.
[2017-06-11] MEDS: FLUCONAZOLE 100 MG TAB PO SCH (11:36)
[2017-06-11] MEDS: LISINOPRIL 5 MG TAB PO SCH (11:36)
[2017-06-11] MEDS: amLODIPine 5 MG TAB PO SCH (11:36)
[2017-06-11] MEDS: LACTOBACILLUS RHAMNOSUS GG 1 EACH CAP PO SCH (11:37)
[2017-06-11] MEDS: INSULIN LISPRO SLIDING SCALE 100 UNITS/ML VIAL SUBQ PRN ×3 (11:40→21:19)
--- NOTE | 2017-06-11 13:15 | NUR ---
ASSISTED PATIENT FROM BED TO RESTROOM. PATIENT AMBULATED VIA WALKER. GAIT IS UNSTEADY D/T S/P AMPUTATION OF FOUR TOES THIS MORNING AND PART OF THE FOOT. PATIENT CURRENTLY HAS NO COMPLAINTS OF PAIN. AWAITING FOR PATIENT TO BE DONE IN THE RESTROOM TO HELP ASSIST HIM BACK TO BED.
--- NOTE | 2017-06-11 13:30 | NUR ---
ASSISTED PATIENT BACK TO BED. PATIENT AMBULATED WITH WALKER. PATIENT IS STILL UNSTEADY D/T PRIOR SURGERY. PATIENT IN NO PAIN OR DISTRESS. WILL CONTINUE TO MONITOR. CALL LIGHT WITHIN REACH.
[2017-06-11] MEDS ORDERED: VANCOMYCIN PER PHARMACY MC PRN (13:40)
--- NOTE | 2017-06-11 15:17 | NUR ---
PT SLEEPING SOUNDLY. ZOSYN STILL INFUSING. NO SIGNS OF DISTRESS. WILL CONTINUE TO MONITOR PT.
--- NOTE | 2017-06-11 17:59 | NUR ---
PT EATING DINNER. NO SIGNS OF DISTRESS. NO COMPLAINTS. DWIGHT WRAP DRY AND INTACT. NO SIGNS OF DRAINING. WILL CONTINUE TO MONITOR PT.
--- NOTE | 2017-06-11 19:24 | NUR ---
GAVE REPORT TO CHIEF SECURITY AND SAFETY OFFICER NURSE. PATIENT ENDORSED IN STABLE CONDITION. NO S/S OF DISTRESS.
--- NOTE | 2017-06-11 19:30 | NUR ---
RECEIVED REPORT FROM DAY SHIFT RN, PATIENT RESTING IN BED, NO S/S OF DISTRESS NOTED, RESPIRATION EVEN AND UNLABORED, ON ROOM AIR. IV PATENT AND INTACT, INFUSING NS AT 50ML/HR. PLAN OF CARE DISCUSSED, PATIENT VERBALIZED UNDERSTANDING. CALL LIGHT WITHIN REACH, SAFETY MEASURE ENSURED, WILL CONTINUE TO MONITOR.
--- NOTE | 2017-06-11 19:59 | NUR ---
TEMP 101.1, BP 166/79, HR 96, O2SAT 96%, RR 19, DENIES PAIN. MADE DR. BUTLER AWARE OF PATIENT'S VITAL SIGNS. WILL CONTINUE TO MONITOR.
[2017-06-11] MEDS: ATORVASTATIN 20 MG TAB PO SCH (21:17)
[2017-06-11] MEDS: ACETAMINOPHEN 325 MG TAB PO PRN (21:18)
--- NOTE | 2017-06-11 22:11 | NUR ---
CALLED PHARMACY, TALKED WITH GISSELLE, AND WAS INFORMED," IT'S OKAY TO GIVE VANCOMYCIN TONIGHT."
[2017-06-12] VITALS: BP 115/60
--- NOTE | 2017-06-12 00:09 | NUR ---
VITAL SIGNS STABLE, NO S/S OF DISTRESS NOTED, RESPIRATION EVEN AND UNLABORED, ON ROOM AIR. CALL LIGHT WITHIN REACH, SAFETY MEASURE ENSURED, WILL CONTINUE TO MONITOR.
[2017-06-12] MEDS: NACL 0.9% 1,000 ML IV SCH ×2 (01:14→21:10)
--- NOTE | 2017-06-12 02:28 | NUR ---
PATIENT WENT TO THE BATHROOM. HAD BOWEL MOVEMENT X1. HE IS RESTING IN BED, NO S/S OF DISTRESS NOTED, RESPIRATION EVEN AND UNLABORED, CALL LIGHT WITHIN REACH, SAFETY MEASURE ENSURED, WILL CONTINUE TO MONITOR.
[2017-06-12] MEDS: PIPERACILLIN/TAZOBACTAM 3.375 GM in DEXTROSE 5% 50 ML IV SCH (05:24)
--- NOTE | 2017-06-12 05:34 | NUR ---
PATIENT IS SLEEPING, NO S/S OF DISTRESS NOTED, RESPIRATION EVEN AND UNLABORED, CALL LIGHT WITHIN REACH, SAFETY MEASURE ENSURED, WILL CONTINUE TO MONITOR.
[2017-06-12 06:30] LABS: BASOPHILS # (AUTO) 0.1 K/uL (0.00-0.22); BASOPHILS % (AUTO) 0.7 % (0.0-2.0); EOSINOPHILS # (AUTO) 0.3 K/uL (0-0.4); EOSINOPHILS % (AUTO) 1.7 % (0.0-4.0); HEMATOCRIT 25.1 % (36-52); HEMOGLOBIN 8.4 g/dL (12.0-18.0); LYMPHOCYTES # (AUTO) 2.4 K/uL (2.0-11.5); LYMPHOCYTES % (AUTO) 12.5 % (20.5-51.1); MEAN CORPUSCULAR HEMOGLOBIN 28 pg (27-31); MEAN CORPUSCULAR HGB CONC 33 g/dL (33-37); MEAN CORPUSCULAR VOLUME 84.1 fL (80-94); MONOCYTES # (AUTO) 1.5 K/uL (0.8-1.0); NEUTROPHILS # (AUTO) 14.9 K/uL (1.8-7.7); NEUTROPHILS % (AUTO) 77.1 % (42.2-75.2); RED BLOOD CELL COUNT(AUTO) 2.98 MIL/uL (4.20-6.10); RED CELL DISTRIBUTION WIDTH 12.8 % (11.6-13.7); WHITE BLOOD COUNT (AUTO) 19.2 K/uL (4.8-10.8)
[2017-06-12] MEDS: BLOOD GLUCOSE MONITORING 1 DEV DEV FS SCH ×4 (06:57→20:43)
[2017-06-12] MEDS: INSULIN LISPRO SLIDING SCALE 100 UNITS/ML VIAL SUBQ PRN ×3 (06:58→18:05)
[2017-06-12 07:31] LABS: ALBUMIN 1.3 g/dL (3.4-5.0); ANION GAP 13.6 (8-16); CREATININE 1.4 mg/dL (0.7-1.3); MAGNESIUM 1.7 mg/dL (1.8-2.4); PHOSPHORUS 3.7 mg/dL (2.5-4.9); POTASSIUM 3.6 mmol/L (3.5-5.1); TOTAL BILIRUBIN 0.2 mg/dL (0.0-1.0)
[2017-06-12 07:33] LABS: PLATELET COUNT (AUTO) 945 K/uL (140-450)
--- NOTE | 2017-06-12 07:33 | NUR ---
ENDORSED PLAN OF CARE TO DAY SHIFT RN, PATIENT IS IN STABLE CONDITION.
--- NOTE | 2017-06-12 07:35 | NUR ---
RECEIVED BEDSIDE REPORT FROM SUPERINTENDENT WAREHOUSE NURSE. PATIENT IS CURRENTLY SLEEPING WITH NO S/SX OF DISTRESS ON ROOM AIR. SKIN IS NOT INTACT. SURGERY WAS DONE YESTERDAY ON RIGHT FOOT. DRESSING IS CLEAN AND DRY. IV ON RIGHT FOREARM 22G. CLEAN, DRY, AND INTACT. WILL CONTINUE TO MONITOR PATIENT. BED IN LOW POSITION. CALL LIGHT WITHIN REACH.
[2017-06-12 08:00] VITALS: BP 150/57
--- NOTE | 2017-06-12 09:20 | NUR ---
DR COKER AT THE BEDSIDE AND IS ABOUT TO DO THE DRESSING CHANGE ON PATIENTS RIGHT FOOT. HE HAD ALL 5 TOES REMOVED, AND PLANTAR I&D. TOOK PICTURES OF WOUND.
[2017-06-12] MEDS: LISINOPRIL 5 MG TAB PO SCH (10:15)
[2017-06-12] MEDS: LACTOBACILLUS RHAMNOSUS GG 1 EACH CAP PO SCH (10:15)
[2017-06-12] MEDS: amLODIPine 5 MG TAB PO SCH (10:16)
--- NOTE | 2017-06-12 10:19 | NUR ---
ADMINISTERED MORNING MEDS. PATIENT TOLERATED MEDS WELL. PATIENT HAS COMPLAINTS OF DIARRHEA AND WANTS MEDS TO STOP DIARRHEA. WILL CONTACT MD. WILL CONTINUE TO MONITOR PATIENT.
--- NOTE | 2017-06-12 11:32 | NUR ---
PATIENT CURRENTLY RESTING. CHECKED BS AND INSULIN REQUIRED. WILL ADMINISTER 2 UNITS HUMALOG. BED IN LOW POSITION. CALL LIGHT WITHIN REACH. WILL CONTINUE TO MONITOR.
--- NOTE | 2017-06-12 12:08 | NUR ---
PATIENT CURRENTLY WALKING WITH PT. WILL CONTINUE TO MONITOR PATIENT.
[2017-06-12] MEDS: metroNIDAZOLE 500 MG/NS PREMIX 100 ML IV SCH ×2 (12:20→21:09)
[2017-06-12] MEDS: VANCOMYCIN HCL 1,250 MG in NACL 0.9% 250 ML IV SCH ×2 (12:51→23:29)
--- NOTE | 2017-06-12 14:00 | NUR ---
PATIENT IS SLEEPING. NO S/S OF DISTRESS ON ROOM AIR. WILL CONTINUE TO MONITOR PATIENT.
[2017-06-12] MEDS ORDERED: GABAPENTIN 100 MG CAP PO SCH (15:00)
[2017-06-12] MEDS ORDERED: MAGNESIUM OXIDE 400 MG TAB PO SCH (15:00)
[2017-06-12 16:00] VITALS: BP 146/63
--- NOTE | 2017-06-12 17:00 | NUR ---
FAMILY AT BEDSIDE. PATIENT SHOWS NO S/SX OF DISTRESS. WILL CONTINUE TO MONITOR. CALL LIGHT WITHIN REACH.
[2017-06-12] MEDS: PIPER/TAZO 3.375GM/D5W PREMIX 50 ML IV SCH ×2 (18:35→21:09)
--- NOTE | 2017-06-12 19:20 | NUR ---
ENDORSED PATIENT TO BOILER FIREMAN RN FOR CONTINUITY OF CARE. PATIENT IN STABLE CONDITION.
--- NOTE | 2017-06-12 19:30 | NUR ---
RECEIVED REPORT FROM DAY SHIFT RN, PATIENT RESTING IN BED, AWAKE ALERT ORIENTED X4, NO S/S OF DISTRESS NOTED, RESPIRATION EVEN AND UNLABORED, DENIES PAIN AT THIS TIME. IV PATENT AND INTACT INFUSING NS AT 50ML/HR. PLAN OF CARE DISCUSSED, PATIENT VERBALIZED UNDERSTANDING, CALL LIGHT WITHIN REACH, SAFETY MEASURE ENSURED, WILL CONTINUE TO MONITOR.
[2017-06-12] MEDS: ATORVASTATIN 20 MG TAB PO SCH (21:09)
[2017-06-12] MEDS: GABAPENTIN 100 MG CAP PO SCH (21:09)
--- NOTE | 2017-06-12 21:14 | NUR ---
DUE MEDICATION GIVEN, PATIENT TOLERATED WELL. NO S/S OF DISTRESS NOTED, RESPIRATION EVEN AND UNLABORED, CALL LIGHT WITHIN REACH, SAFETY MEASURE ENSURED, WILL CONTINUE TO MONITOR.
--- NOTE | 2017-06-12 22:18 | NUR ---
TALKED WITH PHARMACIST GISSELLE, AND SHE SAID," IT'S OKAY TO GIVE VANCOMYCIN TONIGHT."
[2017-06-13] VITALS: BP 133/59
--- NOTE | 2017-06-13 02:24 | NUR ---
PATIENT IS SLEEPING, NO S/S OF DISTRESS NOTED, RESPIRATION EVEN AND UNLABORED, ON ROOM AIR. CALL LIGHT WITHIN REACH, SAFETY MEASURE ENSURED, WILL CONTINUE TO MONITOR.
[2017-06-13] MEDS: PIPER/TAZO 3.375GM/D5W PREMIX 50 ML IV SCH ×3 (04:23→21:27)
[2017-06-13] MEDS: metroNIDAZOLE 500 MG/NS PREMIX 100 ML IV SCH ×3 (04:24→21:27)
--- NOTE | 2017-06-13 04:47 | NUR ---
DUE MEDICATION GIVEN, PATIENT TOLERATED WELL. RESPIRATION EVEN AND UNLABORED. CALL LIGHT WITHIN REACH, SAFETY MEASURE ENSURED, WILL CONTINUE TO MONITOR.
[2017-06-13] MEDS: BLOOD GLUCOSE MONITORING 1 DEV DEV FS SCH ×4 (06:35→21:26)
[2017-06-13 06:41] LABS: ALBUMIN 1.3 g/dL (3.4-5.0); ANION GAP 15.5 (8-16); CREATININE 1.7 mg/dL (0.7-1.3); PHOSPHORUS 3.6 mg/dL (2.5-4.9); POTASSIUM 3.5 mmol/L (3.5-5.1); TOTAL BILIRUBIN 0.2 mg/dL (0.0-1.0)
--- NOTE | 2017-06-13 07:10 | NUR ---
RECEIVED BEDSIDE REPORT FROM ANIMAL LABORATORY TECHNICIAN NURSE. PATIENT IS CURRENTLY SLEEPING WITH NO S/SX OF DISTRESS ON ROOM AIR. SKIN IS NOT INTACT. PATIENT HAD TOES OF RIGHT FOOT AMPUTATED, DRESSING WAS CHANGED YESTERDAY (06/12/17). DRESSING IS CLEAN AND DRY. IV ON LEFT FOREARM 22G. CLEAN, DRY, AND INTACT. WILL CONTINUE TO MONITOR PATIENT. BED IN LOW POSITION. CALL LIGHT WITHIN REACH.
--- NOTE | 2017-06-13 07:10 | NUR ---
ENDORSED PLAN OF CARE TO DAY SHIFT RN, PATIENT RESTING IN BED, IN STABLE CONDITION.
[2017-06-13 07:12] LABS: BASOPHILS # (AUTO) 0.4 K/uL (0.00-0.22); BASOPHILS % (AUTO) 2.4 % (0.0-2.0); EOSINOPHILS # (AUTO) 0.3 K/uL (0-0.4); HEMOGLOBIN 7.4 g/dL (12.0-18.0); LYMPHOCYTES # (AUTO) 2.4 K/uL (2.0-11.5); LYMPHOCYTES % (AUTO) 14.8 % (20.5-51.1); MEAN CORPUSCULAR HEMOGLOBIN 28 pg (27-31); MEAN CORPUSCULAR HGB CONC 34 g/dL (33-37); MEAN CORPUSCULAR VOLUME 83.6 fL (80-94); MONOCYTES # (AUTO) 1.5 K/uL (0.8-1.0); NEUTROPHILS # (AUTO) 11.8 K/uL (1.8-7.7); NEUTROPHILS % (AUTO) 71.8 % (42.2-75.2); RED BLOOD CELL COUNT(AUTO) 2.63 MIL/uL (4.20-6.10); RED CELL DISTRIBUTION WIDTH 12.8 % (11.6-13.7); WHITE BLOOD COUNT (AUTO) 16.4 K/uL (4.8-10.8)
[2017-06-13 07:56] LABS: MAGNESIUM 1.8 mg/dL (1.8-2.4)
[2017-06-13 08:00] VITALS: BP 148/67
[2017-06-13] MEDS: LISINOPRIL 5 MG TAB PO SCH (09:20)
[2017-06-13] MEDS: LACTOBACILLUS RHAMNOSUS GG 1 EACH CAP PO SCH (09:20)
[2017-06-13] MEDS: GABAPENTIN 100 MG CAP PO SCH ×2 (09:20→21:27)
[2017-06-13] MEDS: amLODIPine 5 MG TAB PO SCH (09:21)
[2017-06-13] MEDS: VANCOMYCIN HCL 1,250 MG in NACL 0.9% 250 ML IV SCH (11:00)
[2017-06-13 11:07] LABS: PLATELET COUNT (AUTO) 961 K/uL (140-450)
[2017-06-13] MEDS: INSULIN LISPRO SLIDING SCALE 100 UNITS/ML VIAL SUBQ PRN ×3 (13:37→21:31)
--- NOTE | 2017-06-13 15:23 | NUR ---
PHYSICAL THERAPY CO-SIGN The Physical Therapy Progress Notes documented by Center Human Resources Manager have been reviewed. I CONCUR W/URGENT CARE PHYSICIAN ASSISTANT NOTE; CONT PER TX PLAN Reviewed/Co-Signed by: Caitlin Melgar PT Documentation Done by: USMAN ECHEVARRIA, MAISHA Addendum: 06/13/17 at 1524 by Caitlin Melgar PT Amended: Links added.
[2017-06-13 16:00] VITALS: BP 151/73
[2017-06-13] MEDS ORDERED: FLUCONAZOLE 100 MG TAB PO SCH (16:00)
[2017-06-13] MEDS: NACL 0.9% 1,000 ML IV SCH (16:57)
--- NOTE | 2017-06-13 19:20 | NUR ---
ENDORSED PATIENT TO LABEL MAKER RN FOR CONTINUITY OF CARE. PATIENT IN STABLE CONDITION.
--- NOTE | 2017-06-13 19:35 | NUR ---
RECEIVED REPORT FROM DAY SHIFT RN, PATIENT RESTING IN BED, AWAKE ALERT ORIENTED X4, DAUGHTER AT THE BEDSIDE, NO S/S OF DISTRESS NOTED, RESPIRATION EVEN AND UNLABORED, IV PATENT AND INTACT, INFUSING NS AT 50ML/HR. CALL LIGHT WITHIN REACH, SAFETY MEASURE ENSURED, WILL CONTINUE TO MONITOR.
[2017-06-13] MEDS: ATORVASTATIN 20 MG TAB PO SCH (21:27)
--- NOTE | 2017-06-13 21:33 | NUR ---
DUE MEDICATION GIVEN, PATIENT TOLERATED WELL. NO S/S OF DISTRESS NOTED, RESPIRATION EVEN AND UNLABORED, CALL LIGHT WITHIN REACH, SAFETY MEASURE ENSURED, WILL CONTINUE TO MONITOR.
[2017-06-14] VITALS: BP 133/57
--- NOTE | 2017-06-14 00:27 | NUR ---
PATIENT WAS SLEEPING, EASY TO AROUSE, NO S/S OF DISTRESS NOTED, RESPIRATION EVEN AND UNLABORED, CALL LIGHT WITHIN REACH, SAFETY MEASURE ENSURED, WILL CONTINUE TO MONITOR.
--- NOTE | 2017-06-14 02:22 | NUR ---
PATIENT IS SLEEPING, NO S/S OF DISTRESS NOTED, RESPIRATION EVEN AND UNLABORED, CALL LIGHT WITHIN REACH, SAFETY MEASURE ENSURED, WILL CONTINUE TO MONITOR.
[2017-06-14] MEDS: PIPER/TAZO 3.375GM/D5W PREMIX 50 ML IV SCH ×2 (04:41→12:35)
[2017-06-14] MEDS: metroNIDAZOLE 500 MG/NS PREMIX 100 ML IV SCH ×2 (04:42→12:49)
--- NOTE | 2017-06-14 04:42 | NUR ---
DUE MEDICATION GIVEN, PATIENT TOLERATED WELL. NO S/S OF DISTRESS NOTED, RESPIRATION EVEN AND UNLABORED, CALL LIGHT WITHIN REACH, SAFETY MEASURE ENSURED, WILL CONTINUE TO MONITOR.
[2017-06-14] MEDS: BLOOD GLUCOSE MONITORING 1 DEV DEV FS SCH ×4 (06:30→21:40)
--- NOTE | 2017-06-14 07:20 | NUR ---
ENDORSED PLAN OF CARE TO DAY SHIFT NURSE CARIDI, PATIENT IS IN STABLE CONDITION.
[2017-06-14 07:51] LABS: MEAN CORPUSCULAR HEMOGLOBIN 27 pg (27-31)
[2017-06-14 07:59] LABS: HEMATOCRIT 22.4 % (36-52); HEMOGLOBIN 7.4 g/dL (12.0-18.0); MEAN CORPUSCULAR HGB CONC 33 g/dL (33-37); MEAN CORPUSCULAR VOLUME 82.9 fL (80-94); RED CELL DISTRIBUTION WIDTH 13.3 % (11.6-13.7); WHITE BLOOD COUNT (AUTO) 11.8 K/uL (4.8-10.8)
[2017-06-14 08:00] VITALS: BP 117/77
--- NOTE | 2017-06-14 08:00 | NUR ---
Patient has low grade temperature this morning. He is receiving multiple IV antibiotics 24 hours around the clock. Vikram Marie RN
[2017-06-14 08:10] LABS: PLATELET COUNT (AUTO) 1031 K/uL (140-450)
[2017-06-14 08:23] LABS: ALBUMIN 1.3 g/dL (3.4-5.0); ANION GAP 15.5 (8-16); CARBON DIOXIDE 21.1 mmol/L (21-32); CREATININE 1.8 mg/dL (0.7-1.3); PHOSPHORUS 3.7 mg/dL (2.5-4.9); POTASSIUM 3.6 mmol/L (3.5-5.1); TOTAL BILIRUBIN 0.2 mg/dL (0.0-1.0)
[2017-06-14] MEDS ORDERED: FLUCONAZOLE 100 MG TAB PO SCH (09:00)
[2017-06-14 09:37] LABS: LYMPHOCYTES % (MANUAL) 20 % (20-46); MONOCYTES % (MANUAL) 7 % (5-12)
[2017-06-14 09:38] LABS: EOSINOPHILS % (MANUAL) 4 % (0-4)
[2017-06-14] MEDS: LACTOBACILLUS RHAMNOSUS GG 1 EACH CAP PO SCH (09:59)
[2017-06-14] MEDS: GABAPENTIN 100 MG CAP PO SCH ×2 (09:59→21:30)
[2017-06-14] MEDS: LISINOPRIL 5 MG TAB PO SCH (10:00)
[2017-06-14] MEDS: amLODIPine 5 MG TAB PO SCH (10:00)
--- NOTE | 2017-06-14 11:15 | NUR ---
PHYSICAL THERAPY CO-SIGN The Physical Therapy Progress Notes documented by Data Modeler have been reviewed. I concur with the documentation of this PANMAN. Plan: continue PT as per plan of care if he remains in this hospital. Reviewed/Co-Signed by: Regina Silverio, PT Documentation Done by: Mitchel Bains, PANMAN Addendum: 06/14/17 at 1422 by Regina Silverio PT Amended: Links added.
[2017-06-14] MEDS ORDERED: VANCOMYCIN 1GM/DEXT 5% PREMIX 200 ML IV SCH (12:00)
--- NOTE | 2017-06-14 12:00 | NUR ---
BS 187, and humalog insulin 2 units given per sliding scale per do. Patient with no co pain. He is eating lunch, and has good appetite. Vikram Marie RN
[2017-06-14] MEDS: INSULIN LISPRO SLIDING SCALE 100 UNITS/ML VIAL SUBQ PRN ×3 (12:34→21:42)
[2017-06-14 16:00] VITALS: BP 146/71
--- NOTE | 2017-06-14 17:00 | NUR ---
BS 185, and humalog insulin 2 units given sc per sliding scale per do. Patient is co neuropathy pain, and does request increase in neurontin per md. Vikram Marie RN
[2017-06-14] MEDS ORDERED: PIPER/TAZO 3.375GM/D5W PREMIX 50 ML IV SCH (18:00)
[2017-06-14] MEDS: NACL 0.9% 1,000 ML IV SCH (19:00)
--- NOTE | 2017-06-14 19:20 | NUR ---
RECEIVED REPORT FROM DAY SHIFT NURSE SESAR-RADHA. PT RESTING IN BED, AOX4 ON ROOM AIR. AMBULATORY WITH WALKER USING NON-WEIGHT BEARING ON LEFT RIGHT FOOT. RIGHT TOES AMPUTATED, STICHES ON THE TIP OF FOOT AND SOLES OF FOOT. DIME SIZE BLACK NECROSIS WHERE PINKY TOES WOULD HAVE BEEN. RIGHT FOOT BANDAGED. IV LEFT HAND 22G, NS AT 50ML/HR. DISCUSSED PLAN OF CARE WITH PT. BED IN LOWEST POSITION. CALL LIGHT WITHIN REACH. WILL CONTINUE TO MONITOR. Addendum: 06/14/17 at 2255 by Jacquie Fowler RN PT AWARE OF C.DIFF COLLECTION ORDERED BY WASHINGTON RAYO MD. HAT IN BATHROOM READY FOR STOOL COLLECTION. NOTE POSTED ON DOOR FOR C.DIFF SPECIMEN COLLECTION.
--- NOTE | 2017-06-14 19:30 | NUR ---
INFECTIOUS DISEASE MD DR SHAH ON CONSULT VISITS PATIENT LOOKS AT RIGHT FOOT AMPUTEE INCISION, UPDATED ON PRESENT CONDITION, T MAX 99.5 TODAY AND ORDERS WRITTEN. SESAR GOULD RN
[2017-06-14] MEDS: ATORVASTATIN 20 MG TAB PO SCH (21:30)
--- NOTE | 2017-06-14 21:40 | NUR ---
BLOOD GLUCOSE 213. INSULIN GIVEN PER SLIDING SCALE. SCHEDULED MEDICATION GIVEN AND TOLERATED WELL. WILL CONTINUE TO MONITOR.
--- NOTE | 2017-06-14 23:45 | NUR ---
PT SLEEPING AT THIS TIME. WILL CONTINUE TO MONITOR.
[2017-06-15] VITALS: BP 125/53
[2017-06-15] MEDS ORDERED: AMPICILLIN/SULBACTAM 3 GM VIAL ONE ×3 (00:41→23:53)
[2017-06-15] MEDS: AMPICILLIN/SULBACTAM 3 GM in NACL 0.9% 100 ML IV SCH ×5 (00:49→23:58)
--- NOTE | 2017-06-15 01:00 | NUR ---
VITAL SIGNS TAKEN AND MEDICATION ADMINISTERED SCHEDULED, PT TOLERATED WELL. NO S/S OF RESPIRATORY DISTRESS OR DISCOMFORT NOTED AT THIS TIME. WILL CONTINUE TO MONITOR.
--- NOTE | 2017-06-15 02:17 | NUR ---
PT SLEEPING AT THIS TIME. WILL CONTINUE TO MONITOR.
--- NOTE | 2017-06-15 03:26 | NUR ---
PT CONTINUES TO SLEEP AT THIS TIME. WILL CONTINUE TO MONITOR.
--- NOTE | 2017-06-15 04:52 | NUR ---
PT SLEEPING AT THIS TIME. NO S/S OF RESPIRATORY DISTRESS OR DISCOMFORT NOTED AT THIS TIME. BED IN LOWEST POSITION. CALL LIGHT WITHIN REACH. WILL CONTINUE TO MONITOR
--- NOTE | 2017-06-15 06:00 | NUR ---
SCHEDULED MEDICATION GIVEN. BLOOD GLUCOSE 150, NO INSULIN COVERAGE NEEDED. WILL CONTINUE TO MONITOR.
[2017-06-15] MEDS: BLOOD GLUCOSE MONITORING 1 DEV DEV FS SCH ×4 (06:44→20:41)
--- NOTE | 2017-06-15 07:01 | NUR ---
ENDORSED PT CARE TO DAY SHIFT NURSE KHUSHBOO. PT STABLE AT THIS TIME.
--- NOTE | 2017-06-15 07:03 | NUR ---
ASSUMED CONTINUITY OF CARE. NO SIGNS AND SYMPTOMS OF ACUTE DISTRESS NOTED. INITIAL ASSESSMENT DONE. KEEP COMFORTABLE ON BED. EXPLAINED DIAGNOSIS, PLAN OF CARE, PAIN MANAGEMENT TEACHING, USE OF CALL LIGHT/BED/TV/BATHROOM. CALL LIGHT WITHIN REACH.
[2017-06-15 08:00] VITALS: BP 149/74
--- NOTE | 2017-06-15 08:00 | NUR ---
Patient's Plan of Care was discussed and reviewed with DARRYL: NANNETTE Maya LVN
[2017-06-15 08:09] LABS: BASOPHILS # (AUTO) 0.2 K/uL (0.00-0.22); BASOPHILS % (AUTO) 1.5 % (0.0-2.0); EOSINOPHILS # (AUTO) 0.3 K/uL (0-0.4); EOSINOPHILS % (AUTO) 3.2 % (0.0-4.0); HEMATOCRIT 23.3 % (36-52); HEMOGLOBIN 7.5 g/dL (12.0-18.0); LYMPHOCYTES # (AUTO) 2.2 K/uL (2.0-11.5); LYMPHOCYTES % (AUTO) 20.9 % (20.5-51.1); MEAN CORPUSCULAR HEMOGLOBIN 27 pg (27-31); MEAN CORPUSCULAR HGB CONC 32 g/dL (33-37); MONOCYTES # (AUTO) 1.1 K/uL (0.8-1.0); MONOCYTES % (AUTO) 10.6 % (1.7-9.3); NEUTROPHILS # (AUTO) 6.6 K/uL (1.8-7.7); NEUTROPHILS % (AUTO) 63.8 % (42.2-75.2); PLATELET COUNT (AUTO) 1108 K/uL (140-450); RED BLOOD CELL COUNT(AUTO) 2.77 MIL/uL (4.20-6.10); RED CELL DISTRIBUTION WIDTH 13.1 % (11.6-13.7); WHITE BLOOD COUNT (AUTO) 10.4 K/uL (4.8-10.8)
[2017-06-15 08:12] LABS: ANION GAP 15.2 (8-16); CARBON DIOXIDE 21.5 mmol/L (21-32); CREATININE 1.8 mg/dL (0.7-1.3); POTASSIUM 3.7 mmol/L (3.5-5.1)
[2017-06-15 08:28] LABS: MAGNESIUM 1.9 mg/dL (1.8-2.4); PHOSPHORUS 3.9 mg/dL (2.5-4.9)
[2017-06-15] MEDS: NACL 0.9% 1,000 ML IV SCH (08:46)
[2017-06-15] MEDS: amLODIPine 5 MG TAB PO SCH (08:54)
[2017-06-15] MEDS: GABAPENTIN 100 MG CAP PO SCH ×2 (08:54→20:43)
[2017-06-15] MEDS: LACTOBACILLUS RHAMNOSUS GG 1 EACH CAP PO SCH (08:55)
[2017-06-15] MEDS: INSULIN LISPRO SLIDING SCALE 100 UNITS/ML VIAL SUBQ PRN ×3 (11:26→20:47)
--- NOTE | 2017-06-15 11:26 | NUR ---
DR. BEASLEY CAME AND DID WOUND CARE ON PT. RIGHT FOOT, AND DRESSING CHANGED.
[2017-06-15] MEDS ORDERED: VANCOMYCIN 1GM/DEXT 5% PREMIX 200 ML IV SCH (12:00)
[2017-06-15 16:00] VITALS: BP 147/74
--- NOTE | 2017-06-15 19:10 | NUR ---
BEDSIDE REPORT GIVEN TO DORINDA BRODY. IVF INFUSING WELL. IN STABLE CONDITION.
--- NOTE | 2017-06-15 19:11 | NUR ---
PT RESTING IN BED. FAMILY AT BEDSIDE. AOCathy, IVORIAN SPEAKER, ON ROOM AIR AND AMBULATORY. RIGHT UPPER ARM PICC LINE, INFUSING WELL. INTRODUCED MYSELF, UPDATED WHITE BOARD AND DISCUSSED PLAN OF CARE. PT VERBALIZED UNDERSTANDING. NO S/S OF RESPIRATORY DISTRESS OR DISCOMFORT NOTED AT THIS TIME. BED IN LOWEST POSITION. CALL LIGHT WITHIN REACH. WILL CONTINUE TO MONITOR. Addendum: 06/15/17 at 2130 by Jacquie Fowler RN WRONG PATIENT. PLEASE DISREGARD.
--- NOTE | 2017-06-15 19:15 | NUR ---
RECEIVED REPORT FROM DAY SHIFT NURSE NANNETTE-RADHA. PT RESTING IN BED. AOX4, ON ROOM AIR AND AMBULATORY WITH WALKER, NON-WEIGHT BEARING. BATHROOM PRIVILEGES. IV LEFT HAND 22G, NS @ 50ML/HR. INTRODUCED MYSELF AND UPDATED WHITE BOARD. DISCUSSED PLAN OF CARE. PT VERBALIZED UNDERSTANDING. NO S/S OF RESPIRATORY DISTRESS OR DISCOMFORT AT THIS TIME. BED IN LOWEST POSITION. CALL LIGHT WITHIN REACH. WILL CONTINUE TO MONITOR.
--- NOTE | 2017-06-15 20:00 | NUR ---
PT HAD A BM. CONSISTENCY IS SOFT WITHOUT FORM BUT NOT WATERY AT ALL. UNABLE TO COLLECT SPECIMEN FROM HAT SINCE IT WAS NOT WATERY. PT STATED THAT HAD WATERY DIARRHEA SOON AFTER BEING ADMITTED INTO THE HOSPITAL BUT NOW DOES NOT. NEW HAT IN TOILET FOR SECOND TRY. WILL CONTINUE TO MONITOR.
[2017-06-15] MEDS: ATORVASTATIN 20 MG TAB PO SCH (20:42)
--- NOTE | 2017-06-15 20:47 | NUR ---
BLOOD GLUCOSE 165. 2 UNITS OF HUMALOG ADMINISTERED PER SLIDING SCALE. SCHEDULED MEDICATIONS ALSO GIVEN AND TOLERATED WELL. WILL CONTINUE TO MONITOR.
--- NOTE | 2017-06-15 21:07 | NUR ---
BLOOD GLUCOSE 206. 4 UNITS OF HUMALOG ADMINISTERS PER SLIDING SCALE. PT TOLERATED WELL. WILL CONTINUE TO MONITOR. Addendum: 06/15/17 at 2127 by Jacquie Fowler RN WRONG PATIENT. PLEASE DISREGARD.
--- NOTE | 2017-06-15 22:00 | NUR ---
PT PULLED OUT IV ON LEFT HAND, CATHETER INTACT. NEW IV PLACED ON RIGHT FA #22G, FLUSHING WELL. BED LINEN CHANGED. PT TOLERATED WELL. WILL CONTINUE TO MONITOR.
[2017-06-16] VITALS: BP 138/59
--- NOTE | 2017-06-16 | NUR ---
PT RESTING IN BED. SCHEDULED MEDICATION GIVEN. PT TOLERATED WELL. WILL CONTINUE TO MONITOR.
[2017-06-16] MEDS: NACL 0.9% 1,000 ML IV SCH (01:03)
--- NOTE | 2017-06-16 02:00 | NUR ---
PT CONTINUES TO SLEEP AT THIS TIME. WILL CONTINUE TO MONITOR.
--- NOTE | 2017-06-16 04:00 | NUR ---
PT CONTINUES TO SLEEP AT THIS TIME. WILL CONTINUE TO MONITOR.
[2017-06-16] MEDS: AMPICILLIN/SULBACTAM 3 GM in NACL 0.9% 100 ML IV SCH ×2 (05:11→12:04)
[2017-06-16 05:52] LABS: BASOPHILS # (AUTO) 0.1 K/uL (0.00-0.22); BASOPHILS % (AUTO) 1.1 % (0.0-2.0); EOSINOPHILS # (AUTO) 0.5 K/uL (0-0.4); EOSINOPHILS % (AUTO) 4.3 % (0.0-4.0); HEMATOCRIT 22.1 % (36-52); HEMOGLOBIN 7.2 g/dL (12.0-18.0); LYMPHOCYTES # (AUTO) 2.3 K/uL (2.0-11.5); LYMPHOCYTES % (AUTO) 20.1 % (20.5-51.1); MEAN CORPUSCULAR HEMOGLOBIN 27 pg (27-31); MEAN CORPUSCULAR HGB CONC 33 g/dL (33-37); MEAN CORPUSCULAR VOLUME 83.7 fL (80-94); MONOCYTES # (AUTO) 1.3 K/uL (0.8-1.0); NEUTROPHILS # (AUTO) 7.4 K/uL (1.8-7.7); NEUTROPHILS % (AUTO) 63.5 % (42.2-75.2); RED BLOOD CELL COUNT(AUTO) 2.64 MIL/uL (4.20-6.10); RED CELL DISTRIBUTION WIDTH 13.1 % (11.6-13.7); WHITE BLOOD COUNT (AUTO) 11.6 K/uL (4.8-10.8)
--- NOTE | 2017-06-16 06:21 | NUR ---
BLOOD GLUCOSE 133. NO INSULIN NEEDED
[2017-06-16 07:34] LABS: ANION GAP 14.9 (8-16); CARBON DIOXIDE 21.9 mmol/L (21-32); CREATININE 1.9 mg/dL (0.7-1.3); POTASSIUM 3.8 mmol/L (3.5-5.1)
--- NOTE | 2017-06-16 07:34 | NUR ---
ENDORSED PT CARE TO DAY SHIFT NURSE. PT IN STABLE CONDITION.
--- NOTE | 2017-06-16 07:34 | NUR ---
RECEIVED REPORT FROM NIGHTSHIFT NURSE AT BEDSIDE. PATIENT IS ASLEEP AT THIS TIME BUT AROUSABLE TO NAME. PATIENT HAS AN IV ON RIGHT FOREARM INFUSING FLUIDS AT 50 ML/HR. NO COMPLAINTS OF PAIN AT THIS TIME. NO SIGNS OF RESPIRATORY DISTRESS OR RESPIRATORY DEPRESSION. PATIENT RIGHT LEG IS WRAPPED AT THIS TIME. NO DRAINAGE NOTED. ENCOURAGED PATIENT TO CALL IF HE NEEDS HELP WITH AMBULATING. PUT CALL LIGHT WITHIN REACH OF PATIENT. APPROPRIATE SIGNS POSTED OUTSIDE OF PATIENTS ROOM. WILL CONTINUE TO MONITOR.
[2017-06-16 07:37] LABS: MAGNESIUM 1.9 mg/dL (1.8-2.4); PHOSPHORUS 3.9 mg/dL (2.5-4.9)
[2017-06-16] MEDS: BLOOD GLUCOSE MONITORING 1 DEV DEV FS SCH ×3 (07:37→16:30)
[2017-06-16 08:00] VITALS: BP 132/58
[2017-06-16] MEDS: LACTOBACILLUS RHAMNOSUS GG 1 EACH CAP PO SCH (08:55)
[2017-06-16] MEDS: GABAPENTIN 100 MG CAP PO SCH (08:55)
[2017-06-16] MEDS: amLODIPine 5 MG TAB PO SCH (08:55)
[2017-06-16 09:21] LABS: PLATELET COUNT (AUTO) 1118 K/uL (140-450)
[2017-06-16] MEDS: INSULIN LISPRO SLIDING SCALE 100 UNITS/ML VIAL SUBQ PRN ×2 (12:06→18:14)
[2017-06-16] MEDS ORDERED: SITA50TA3 PO (13:11)
[2017-06-16] MEDS ORDERED: AMLO5TAB4 PO (13:11)
[2017-06-16] MEDS ORDERED: ACET-2863 PO (13:11)
[2017-06-16] MEDS ORDERED: AMOX-1041 PO (13:11)
[2017-06-16] MEDS ORDERED: GABA-636 PO (13:11)
[2017-06-16] MEDS ORDERED: DOCU-299 PO (13:11)
[2017-06-16] MEDS ORDERED: ATOR20TA40 PO (13:11)
[2017-06-16] MEDS ORDERED: LACT10CA PO (13:11)
--- NOTE | 2017-06-16 14:45 | NUR ---
PATIENT WALKED WITH PHYSICAL THERAPY UP THE HALLWAY TOWARDS THE 115 ROOMS. PATIENT TOLERATED WELL.
--- NOTE | 2017-06-16 16:00 | NUR ---
PATIENT ASLEEP AT THIS TIME. NO COMPLAINTS OF PAIN. WILL CONTINUE TO MONITOR PATIENT.
[2017-06-16] MEDS ORDERED: PNEUMOCOCCAL VACCINE 23 MCG/0.5 ML VIAL IMVAC SCH (16:25)
--- NOTE | 2017-06-16 17:39 | NUR ---
DID NOT TAKE PHOTOGRAPHS OF PATIENT'S WOUND. PATIENT HAS FOLLOW UP VISIT AT [facility] WHERE HIS WOUND WILL BE CARED FOR.
--- NOTE | 2017-06-17 20:09 | NUR ---
PHYSICAL THERAPY CO-SIGN The Physical Therapy Progress Notes documented by [employer] have been reviewed. Reviewed/Co-Signed by: Kathleen Milton DPT Documentation Done by: Karley Vigil PTA Patient delio tx well, progressing towards goals, cont with PT POC as delio/safe. Late entry for yesterday 06/16. Addendum: 06/17/17 at 2010 by Kathleen Milotn PT Amended: Links added.
== END 2017-06-16 18:40 | disposition home or self-care (01) | DRG 853 ==
LOC: MED 08:48 → MTU 11:10
PROVIDERS: ADMIT Student in an Organized Health Care Education/Training Program; ATTEND Student in an Organized Health Care Education/Training Program
PROC: 0Y9M0ZZ Drainage of Right Foot, Open Approach (ICD-10-PCS; 2017-06-04)
PROC: 0Y6M0ZF Detachment at Right Foot, Partial 5th Ray, Open Approach (ICD-10-PCS; principal; 2017-06-04 12:00)
PROC: 0QBN0ZZ Excision of Right Metatarsal, Open Approach (ICD-10-PCS; 2017-06-06)
PROC: 0Y6M0ZB Detachment at Right Foot, Partial 2nd Ray, Open Approach (ICD-10-PCS; 2017-06-11)
PROC: 0Y6M0ZC Detachment at Right Foot, Partial 3rd Ray, Open Approach (ICD-10-PCS; 2017-06-11)
PROC: 0Y6M0ZD Detachment at Right Foot, Partial 4th Ray, Open Approach (ICD-10-PCS; 2017-06-11)
PROC: 0Y6M0ZF Detachment at Right Foot, Partial 5th Ray, Open Approach (ICD-10-PCS; 2017-06-11)
PROC: 3E0234Z Introduction of Serum, Toxoid and Vaccine into Muscle, Percutaneous Approach (ICD-10-PCS; 2017-06-16)
DX: A41.9 Sepsis, unspecified organism (principal); N17.0 Acute kidney failure with tubular necrosis; E43 Unspecified severe protein-calorie malnutrition; J90 Pleural effusion, not elsewhere classified; E11.42 Type 2 diabetes mellitus with diabetic polyneuropathy; D68.59 Other primary thrombophilia; E11.52 Type 2 diabetes mellitus with diabetic peripheral angiopathy with gangrene; L03.115 Cellulitis of right lower limb; E87.1 Hypo-osmolality and hyponatremia; T87.44 Infection of amputation stump, left lower extremity; L03.116 Cellulitis of left lower limb; M86.8X7 Other osteomyelitis, ankle and foot; L02.611 Cutaneous abscess of right foot; B37.49 Other urogenital candidiasis; E83.42 Hypomagnesemia; E86.0 Dehydration; E11.69 Type 2 diabetes mellitus with other specified complication; E11.65 Type 2 diabetes mellitus with hyperglycemia; E87.8 Other disorders of electrolyte and fluid balance, not elsewhere classified; D64.9 Anemia, unspecified; D47.3 Essential (hemorrhagic) thrombocythemia; R74.0 Nonspecific elevation of levels of transaminase and lactic acid dehydrogenase [LDH]; N40.0 Benign prostatic hyperplasia without lower urinary tract symptoms; I10 Essential (primary) hypertension; Z89.012 Acquired absence of left thumb; Z87.891 Personal history of nicotine dependence; Z68.28 Body mass index [BMI] 28.0-28.9, adult; Z23 Encounter for immunization
CPT/HCPCS: 36415; 71045; 71270; 73610; 73630; 73660; 73700; 76604; 80048; 80053; 80202; 80305; 82140; 82150; 82550; 82948; 83036; 83605; 83690; 83735; 83880; 84100; 84436; 84439; 84443; 84479; 85025; 85610; 85730; 87040; 87070; 87075; 87081; 87086; 87186; 87205; 90732; 93005; 93925; 93970; 93976; 96365; 97110; 97116; 97140; 97530; 99285; J0295; J1200; J1815; J1956; J2001; J2175; J2250; J2270; J2543; J2704; J3010; J3370; J3490; J7030; J7060; Q0092; Q9967